=== PATIENT | female | born 1985 | race African-American/Black ===

== ENCOUNTER 2020-11-01 05:24 | Inpatient (IN) | payer BC, SELFPAY ==
--- NOTE | 2020-10-09 12:53 | PC.NURSE ---
VERIFIED WITH OR SCHEDULE AND PATIENT--C/S WITH TUBAL LIGATION ON 11/01/20 AT 0730 PATIENT GIVEN REQUISITION FOR LAB DRAW ON 10/31/20
[2020-10-31 12:09] LABS: Hematocrit 41.5 % (37.0-47.0); Hemoglobin 13.7 g/dL (12.0-15.0); Mean Corpuscular Volume 87.7 fl (80-100); Platelet Count Result 170 k/mm3 (150-375); Red Blood Count 4.73 M/mm3 (4.2-5.4); Red Cell Distribution Width 14.5 % (11.5-14.5); White Blood Count 7.1 K/mm3 (4.5-10.0)
--- NOTE | 2020-10-31 14:54 | P.HP_ITS ---
H&P: HPI History of Present Illness Date/Time: 10/31/20 14:54 35 yo A2 at 39 wks here for repeat csection and tubal ligation. She has completed childbearing and wants permanant control. Risks of failure with increased ectopic discussed. uncomplicated. labs: A+; RPR - ;HepBSAg -;Rubella immume; Hiv -; GBS -. Has been on Valtrex for hx HSV. Chief Complaint: scheduled csection and BTL Review of Systems Review of Systems: contractions rare; Good FM; No PIH sx PMFSH Past Medical History Medical History (Updated 10/31/20 @ 14:59 by Brittney Ryder MD) Advanced maternal age (AMA) in normal Level 2 us Fibroids HSV (herpes simplex virus) infection Surgical History Surgical History (Updated 10/31/20 @ 15:01 by Brittney Ryder MD) History of x2 History of elective x2 Family History Family History (Updated 10/09/20 @ 12:40 by Claudio Edwards RN) Other No pertinent family history Social History Social History Substance use: never Spiritual care concerns: No Meds Home Medications and Allergies Home Medications Medication Instructions Recorded Confirmed Type acetaminophen [Tylenol] 325 mg PO ONCE PRN 10/09/20 10/09/20 History aspirin [Aspirin Low Dose] 81 mg PO DAILY 10/09/20 10/09/20 History prenat.vits,rhonda,dni-vrit-arqey 1 tablet PO DAILY 10/09/20 10/09/20 History [ #2] Allergies Allergy/AdvReac Type Severity Reaction Status Date / Time No Known Allergies Allergy Verified 10/09/20 12:36 Exam Const: General: comfortable and no acute distress GI: GI Palp: Yes Other GI palpation findings present (gravid with FH 41 cm) Assessment and Plan Assessment and plan (1) 39 weeks gestation of : Code(s): Z3A.39 - 39 weeks gestation of Status: Acute Assessment and Plan: Plan to proceed with repeat LTCS and BTL (2) Encounter for sterilization: Code(s): Z30.2 - Encounter for sterilization Status: Acute (3) History of : Code(s): Z98.891 - History of uterine scar from previous surgery Status: Acute
[2020-11-01] VITALS (97 sets, daily range): BP systolic 67–134; BP diastolic 31–87; PULSE 47–152; RESP 16–51; TEMP 30.2–37; O2SAT 88–100; BMI 41.5
--- NOTE | ~2020-11-01 | US_ITS ---
EXAMINATION: US abdomen limited DATE: 11/01/2020 13:04 INDICATION: Abnormal vital signs status post section and bilateral tubal ligation TECHNIQUE: Multiple grayscale and Doppler ultrasound images of the abdomen were obtained. COMPARISON: None available FINDINGS: There is a small to moderate amount of free fluid in the upper abdomen and right lower quad rant. Enlarged uterus is noted. Foci of gas in the endometrial canal are consistent with e arlier section. IMPRESSION: 1. Small to moderate volume of fluid in the upper abdomen and right lower quadrant. Reviewed, dictated and finalized at location A. IMPRESSION: 1. Small to moderate volume of fluid in the upper abdomen and right lower quadr ant.
--- NOTE | ~2020-11-01 | CT_ITS ---
EXAMINATION: CTA chest PE abdomen pel DATE: 11/01/2020 23:48 INDICATION: Tachypnea. TECHNIQUE: Computed tomography angiography (CTA) of the chest was performed with 100 mL Omnipaque-350 intravenous contrast timed to evaluate the pulmonary arteries. Coronal maximum intensity projection 3D-reconstructions were created by the technologist. Computed tomography (CT) of the abdomen and pelv is was performed with intravenous contrast. Automated exposure control and iterative reconstruction t echnique were employed. The dose-length product was 2000.33 mGy-cm. COMPARISON: Ultrasound abdomen 11/01/2020 FINDINGS: CTA chest: There is mild dependent atelectasis in the lungs. No pleural effusion. The heart size is n ormal. There is a small pericardial effusion. There is no pulmonary embolus. CT abdomen and pelvis: The liver, gallbladder, spleen, pancreas, adrenal glands, and kidneys are norm al. There are no dilated loops of bowel. The appendix is normal. The uterus is enlarged, consistent w ith recent . The endometrial complex is thickened to 18 mm. There is a 19 mm calcification i n the uterus, consistent with a fibroid. There is a moderate volume of hemoperitoneum. There is gas i n the lower abdomen, consistent with recent surgery. Lower abdominal skin deyvi are noted. The bone s are unremarkable. IMPRESSION: 1. Moderate volume of hemoperitoneum. 2. Small pericardial effusion. 3. No pulmonary embolus. Sensitivity is severely decreased by motion artifact and suboptimal contrast timing. 4. Thickened endometrial complex, which may be hematoma. Retained products of conception cannot be ex cluded. Reviewed, dictated and finalized at location A. IMPRESSION: 1. Moderate volume of hemoperitoneum. 2. Small pericardial effusion. 3. No pulmonary embolus. Sensitivity is severely decreased by motion artifact a nd suboptimal contrast timing. 4. Thickened endometrial complex, which may be hematoma. Retained products of c onception cannot be excluded.
--- NOTE | ~2020-11-01 | XR_ITS ---
EXAMINATION: XR abdomen obstructive series DATE: 11/04/2020 06:18 INDICATION: Distended abdomen. Abnormal bowel sounds. TECHNIQUE: Frontal supine and upright views of the abdomen were obtained. COMPARISON: None. FINDINGS: Air-fluid level seen within multiple loops of mildly dilated small bowel in the mid and left abdomen. Gas and stool seen in the proximal colon. No pneumatosis or evident pneumoperitoneum however the sta nding projection excludes the diaphragm which limits sensitivity. IMPRESSION: 1. Multiple mildly dilated loops of small bowel which could represent either postoperative ileus or obstruction. 2. No evident free intraperitoneal gas. Sensitivity is limited by positioning of the standing radiogr aph which excludes the apex of the diaphragm. If there is clinical concern for perforation or free in traperitoneal gas would recommend repeat upright or decubitus imaging. Reviewed, dictated and finalized at location A. IMPRESSION: 1. Multiple mildly dilated loops of small bowel which could represent either p ostoperative ileus or obstruction. 2. No evident free intraperitoneal gas. Sensitivity is limited by positioning o f the standing radiograph which excludes the apex of the diaphragm. If there is clinical concern for perforation or free intraperitoneal gas would recommend r epeat upright or decubitus imaging.
[2020-11-01] MEDS: LACTATED RINGERS 1,000 ML 125 ML IV CONT ×2 (05:59→06:39)
--- NOTE | 2020-11-01 06:11 | LDADM ---
This patient, Rossi Calvin, was admitted to Labor/Delivery/Recovery 120 on 11/01/20 at 05:24. Plans for labor, pain management and were discussed with patient. Patient/family oriented to hospital policies and general routines including ID bracelet, bed and alarms, visiting hours, pain management, procedures, bathroom and other care routines, personal items, smoking policy, room service/diet and guest tray routines, security routines, and visiting hours. Patient/Family are encouraged to report perceived risks to care and to ask questions if they do not understand what they are told or what they should do. See OBIX for further documentation.
--- NOTE | 2020-11-01 07:08 | WPDANESEPPF ---
Anes - Initial Pre Proc Eval Procedure: Operation Date: 11/01/20 07:30 Proposed Procedures p Repeat Section with Bilateral Tubal Ligation - Brittney Ryder MD Date/Time: 11/01/20 07:08 Surgeon: Brittney Ryder MD Pre Op Diagnosis: C/S Patient Data Age: 35 Gender: F Height: 1.57 m Weight: 103 kg Last Vital Signs Temp 36.6 C 11/01/20 06:43 Pulse 66 11/01/20 06:43 Resp 20 11/01/20 06:43 BP 128/76 11/01/20 06:43 Allergies Allergy/AdvReac Type Severity Reaction Status Date / Time No Known Allergies Allergy Verified 10/09/20 12:36 Home Medications Medication Instructions Recorded Confirmed Type acetaminophen [Tylenol] 325 mg PO ONCE PRN 10/09/20 11/01/20 History aspirin [Aspirin Low Dose] 81 mg PO DAILY 10/09/20 11/01/20 History prenat.vits,rhonda,hrd-rdgj-oagrq 1 tablet PO DAILY 10/09/20 11/01/20 History [ #2] valacyclovir 500 mg PO DAILY 11/01/20 11/01/20 History Patient hx anesthesia problems: none Family hx anesthesia problems: none PMFSH Past Medical History Medical History Advanced maternal age (AMA) in normal Level 2 us Fibroids HSV (herpes simplex virus) infection Surgical History Surgical History History of x2 History of elective x2 Family History Family History Other No pertinent family history Social History Social History Smoking status: Never smoker Substance use: never Spiritual care concerns: No Anes - Eval Final PreProcedure Day of Procedure 11/01/20 07:08 Patient weight: morbidly obese Heart: regular rate and rhythm Lungs: clear to auscultation Airway: Mallampati scale class II Neurological: alert and oriented Last oral intake: >/= 8 hours ASA classification: III Emergent: no Anesthetic plan: proceed Anesthesia type and monitoring: regional spinal and standard monitoring Informed Consent: The patient's anesthetic plan and its attendant risks and benefits were discussed with the patient/family/POA. Questions were solicited and answers provided to the satisfaction of the patient/family/POA.
--- NOTE | 2020-11-01 07:13 | WPDHPUPDATE1 ---
History and Physical Update Update Date/Time: 11/01/20 07:13 History and Physical has been reviewed, including an updated exam of the patient. There are NO changes in the patient's condition. Risks, benefits, and alternatives have been discussed and questions answered. Patient agrees to proceed with procedure.
[2020-11-01] MEDS: ceFAZolin 2 GM/D5W 50 ML 2 GM/50 ML BAG IVPB (07:23)
--- NOTE | 2020-11-01 08:25 | P.OP_ITS ---
Procedure Note - Detailed Date of Procedure 11/01/20 Pre-op Diagnosis IUP 39 wks Prior csection x 2 requests sterilization fibroids Post-op Diagnosis same (plus double footling breech) Procedure Performed repeat LTCS and BTL Surgeon Brittney Ryder MD Anesthesia spinal Findings Female in the double footling breech presentation; copious amounts of clear fluid; 2 large fibroids at the fundus the right fundus is approximately 7cm the midline is approximately 5 to 6 cm they are subserosal intrauterine cavity has no palpable fibroids; infant weighs 7 lb 5oz with Apgars of 9 [id number] 9 5minutes; tight nuchal cord x2; normal-appearing tubes and ovaries Description of Procedure the patient was taken to the operating room placed under spinal anesthesia in the dorsal supine position with a leftward tilt. She was prepped and draped in usual sterile fashion. Pfannenstiel skin incision was made through the prior incision and carried down to the underlying layer of fascia which was nicked in the midline with the scalpel. Fascial incision is extended laterally using Gonsalez scissors. [facility] was used to tent the fascia which was then dissected off using sharp dissection due to dense adhesions. The rectus muscles are the peritoneum is entered bluntly and extended with blunt traction. The bladder blade is placed. The lower uterine segment was noted to be very thin the bladder flap was created using sharp dissection bladder blade is replaced. The membranes are ruptured and copious amounts of clear fluid were noted the was noted to be in the double footling breech presentation. Both feet are grasped and the infant was delivered to the scapula the infant was rotated in the right arm delivered spontaneously the was rotated and the left arm splinted and delivered the is extended on the abdomen and the head delivered spontaneously tight nuchal cord x2 was reduced. The cord was clamped and cut the infant handed to the waiting nursery nurse. The placenta is removed using manual traction. Due to the large fibroids the uterus is left inside tube. The Daniel O retractor was placed. Uterine edges were grasped with ring forceps. Uterine incision is closed using 0 Monocryl in a running locked fashi on. Same suture was used to imbricate and obtain hemostasis. The right tube is brought into the surgical field grasped with a Minerva and crossclamped using a zeppelin clamp. The tube is excised and the pedicle tied using 0 Vicryl. The identical procedure was performed on the opposite side. The incision is again inspected noted to be hemostatic the tubal sites were hemostatic all instruments are removed the fascia is closed using 0 Vicryl in a running fashion. Subcutaneous tissues were irrigated made hemostatic using Bovie cautery. Skin incision was closed using 4-0 Vicryl in a subcuticular fashion. Sponge, needle, and instrument counts are correct per the OR staff. Patient received Ancef prior to skin incision. Estimated Blood Loss 505 Drains Yes (mayer) Packing No Pathology yes ( bilateral tubal segment) Complications No immediate complications Condition stable Disposition floor
--- NOTE | 2020-11-01 08:30 | PM.OBDSVD ---
DS: Admitting Diagnosis Admitting Diagnosis intrauterine at 39 weeks previous section x2 request sterilization fibroids DS: Discharge Diagnosis Discharge Diagnosis (1) History of : Code(s): Z98.891 - History of uterine scar from previous surgery Status: Acute (2) Encounter for sterilization: Code(s): Z30.2 - Encounter for sterilization Status: Acute Assessment and Plan: s/p BTL (3) 39 weeks gestation of : Code(s): Z3A.39 - 39 weeks gestation of Status: Acute Assessment and Plan: resolved (4) Fibroids: Code(s): D21.9 - Benign neoplasm of connective and other soft tissue, unspecified Status: Inactive (5) Post-op bleeding: Status: Acute Assessment and Plan: return to OR 4 units PRBC and 1 unit FFP (6) Postoperative ileus: Code(s): K91.89 - Other postprocedural complications and disorders of digestive system; K56.7 - Ileus, unspecified Status: Acute Assessment and Plan: resolved in less than 24 hours tolerating regular diet (7) Postoperative tachycardia and tachypnea: Code(s): I97.89 - Other postprocedural complications and disorders of the circulatory system, not elsewhere classified; J95.89 - Other postprocedural complications and disorders of respiratory system, not elsewhere classified Status: Acute Assessment and Plan: resolved (8) delivery delivered: Code(s): O82 - Encounter for delivery without indication Status: Acute (9) Anemia: Code(s): D64.9 - Anemia, unspecified Status: Acute Assessment and Plan: tolerating plan iron BID x 8 wks OB - DS: Summary OB Procedures : Ultrasound OB Procedures Intrapartum: low cervical, transverse OB Procedures: : P.P. tubal ligation Peripartum Data Infant Delivery Method: Section Procedures: Procedures Operation Date: 11/01/20 07:30 <No data on this case meets the specified criteria> complications: other (post op bleeding with return to OR) Status at Discharge Functional status at discharge: independent ambulation Overall status at discharge: patient is progressing back to baseline Time Spent with Patient Time attestation: Total time spent providing and/or coordinating discharge services: Discharge Plan Discharge Attending physician on discharge: Brittney Ryder Consulting providers: Rose Colunga Discharging Clinician: Brittney Ryder Anticipated Discharge Date/Time: 11/04/20 08:31 Patient Disposition: Home, Self-Care Activity: may shower, may drive after 2 weeks and pelvic rest Diet: regular Wound Care Instructions: incision open to air Patient Instructions: Antibiotic Form Stand Alone Forms: General Discharge Information Follow-up/Referrals: Brittney Ryder MD [Physician] - 1 Week (and 6 wk) Discharge Medications: New hydrocodone-acetaminophen 5-325 mg Tablet 1 tablet PO Q3H PRN (Reason: Moderate Pain (4-6)) Qty: 10 RF: 0 Continued acetaminophen [Tylenol] 325 mg Tablet 325 mg PO ONCE PRN (Reason: Headache) RF: 0 #2 Tablet 1 tablet PO DAILY RF: 0 Discontinued aspirin [Aspirin Low Dose] 81 mg Tablet,Delayed Release (Dr/Ec) 81 mg PO DAILY RF: 0 valacyclovir 500 mg tablet 500 mg PO DAILY RF: 0 Date of admission: 11/01/20 05:24 Primary Care Provider: Darwin Garcia Admitting Provider: Brittney Ryder Attending physician on admission: Brittney Ryder Condition: Stable
[2020-11-01] MEDS: OXYTOCIN 30 UNITS/NS 500 ML 30 UNITS/500 ML BAG 125 UNITS IV CONT (08:38)
[2020-11-01] MEDS: LACTATED RINGERS 1,000 ML 999 ML IV CONT (09:10)
[2020-11-01] MEDS: ePHEDrine sulfate INJ 50 MG/ML AMPUL IV PUSH (09:40)
[2020-11-01 09:47] LABS: Rapid Plasma Reagin Non-Reactive (NonReactive)
--- NOTE | 2020-11-01 10:51 | SUR.PHASEI ---
Report called to Tracey RILEY. Orders rc'vd to draw HH before moving to pp.
[2020-11-01 11:14] LABS: Hematocrit 31.1 % (37.0-47.0); Hemoglobin 9.9 g/dL (12.0-15.0)
--- NOTE | 2020-11-01 12:15 | PC.NURSE ---
Khurram hugger blanket placed on patient, temperature
--- NOTE | 2020-11-01 12:18 | PC.NURSE ---
Patient sleeping and not feeling well per primary RN. Primary RN states that parents decided to feed bottle for this feeding and will attempt once mom is feeling more up to it.
--- NOTE | 2020-11-01 12:19 | PC.NURSE ---
Dr. Ryder notified of Vital signs including low temp, and blood pressure. Notified also of H&H that was drawn in recovery, orders received to do a bedside ultrasound to look for free standing fluid. Ultrasound will be ordered
--- NOTE | 2020-11-01 13:00 | PC.NURSE ---
Dr. Ryder notified of ultrasound, orders received to draw an H&H, PTT and fibrinogen at 1700 and call the results to her. Hold the Toradol for now and give Morphine 2 mg every 2 hours prn as needed for pain.
[2020-11-01] MEDS: DEXTROSE 5%/0.45% SOD CHL 1,000 ML 125 ML IV CONT ×2 (13:43→21:23)
[2020-11-01] MEDS: MORPHINE SULFATE (*CRX) 2 MG/ML INJ IV PUSH (14:13)
[2020-11-01 17:27] LABS: Hematocrit 27.2 % (37.0-47.0); Hemoglobin 8.8 g/dL (12.0-15.0)
--- NOTE | 2020-11-01 18:00 | PC.NURSE ---
Dr. Ryder notified of vitals and H&H results, she is going to come in to see the patient and discuss the plan of care which is going to be possibly taking the patient back to the OR for an exploratory lap, Dr. Ryder transferred to the House Supervisior.
--- NOTE | 2020-11-01 18:20 | PM.OBPNVD ---
OB - PN: Subj Subjective Date/time seen: 11/01/20 18:20 Interval history: feels very tired pain under control OB - PN: Obj Data Labs CBC & Chem 7: 11/01/20 17:17 Labs: Laboratory Results - last 24 hr 11/01/20 11/01/20 11:03 17:17 Hgb 9.9 L D 8.8 L Hct 31.1 L 27.2 L Imaging Radiologist's impression: Impressions Abdomen Ultrasound 11/01/20 13:11 IMPRESSION: 1. Small to moderate volume of fluid in the upper abdomen and right lower quadrant. OB - PN A/P Plan day: 0 Comments: Initial call from RN with low temp at 85.9, low pulse, and low BP. Was told anesthesia gave iv bolus and ephedrine. BP stable throughout day but pulse continues to rise. Hb decreased to 9.9 and now 8.8. U/s with small to moderate fluid. Recommend to patient and sig. other to return to OR for suspected internal bleeding. Reviewed procedure and they agree to proceed with exploratory laparotomy. Time Spent With Patient Time: Total time spent is greater than 50% in coordination of care (as documented) at patient's floor/unit and/or counseling patient: Exam Const: General: no acute distress and lethargic Resp: Effort & Inspection: normal respiratory effort GI: GI Palp: Yes abdominal tenderness and Yes Other GI palpation findings present Percussion: Yes tympanic to percussion
[2020-11-01 18:23] LABS: Partial Thromboplastin Time 25.2 SECONDS (22.3-36.8)
[2020-11-01 18:29] LABS: Fibrinogen 221 mg/dl (215-510)
--- NOTE | 2020-11-01 18:35 | PC.NURSE ---
To OR per hospital bed.
--- NOTE | 2020-11-01 19:16 | WPDANESEFPP ---
Anes - Eval Final PreProcedure Day of Procedure 11/01/20 19:16 Patient weight: morbidly obese Heart: regular rate and rhythm Lungs: clear to auscultation and normal air movement Airway: Mallampati scale class II Neurological: alert and oriented Last oral intake: >/= 8 hours ASA classification: III Emergent: yes Anesthetic plan: proceed Anesthesia type and monitoring: general ETT Informed Consent: The patient's anesthetic plan and its attendant risks and benefits were discussed with the patient/family/POA. Questions were solicited and answers provided to the satisfaction of the patient/family/POA.
[2020-11-01] MEDS: LACTATED RINGERS 1,000 ML 30 ML IV CONT ×2 (20:17)
--- NOTE | 2020-11-01 20:20 | W.PM.PROC2 ---
Procedure Note - Detailed Date of Procedure 11/01/20 Pre-op Diagnosis post op bleeding status post section and tubal ligation Post-op Diagnosis same Procedure Performed Exploratory laparotomy with evacuation of clot Surgeon Brittney Ryder MD Anesthesia general Findings Upon opening the abdomen, a large amount of blood clot was noted in the gutters. In addition there was a large hematoma in the left broad ligament tissues. Description of Procedure The patient was taken to the operating room and placed under general anesthesia in the dorsal supine position. She was prepped and draped in the usual sterile fashion. The glue was incised in the corner and peeled off the incision. The sutures cut and the incision opened. No bleeding is noted in the subcutaneous tissues. The fascial sutures are cut and the incision opened. No active blood is noted. I manually removed approximately 800cc of blood clot from the gutters and cul-de-sac with an additional 500cc suctioned with the pool suction. The Daniel O retractor was then placed. The tubal sites were inspected and noted to be hemostatic additional sutures were placed on each pedicle for additional reinforcement with 0 Vicryl. The uterine incision is noted to be intact and hemostatic both angles are visualized as well as the entire incision. There is a large hematoma noted within the left broad ligament. The peritoneum was opened and extended approximately 8cm. Additional blood clot was removed from this area. No active bleeding was noted 2 lap sponges were placed within this space and left in place for 10minutes. Sponges were removed with minimal blood noted on the sponges and no active bleeding noted on any of the tissues incorporating this space. Two pieces of Surgicel measuring 2x14 were placed within the space and again the space was observed for further bleeding there was no active bleeding noted. The bladder flap was noted to be hemostatic with no bleeding noted. Decision was made to close. All instruments were removed. Fascia was reclosed using 0 Vicryl in a running fashion. Subcutaneous tissues are irrigated and noted to be hemostatic. Skin was closed with deyvi. Sterile bandages applied. Sponge, needle, and instrument counts are correct per the OR staff. Patient did receive 2g of Ancef prior to starting the procedure. Estimated Blood Loss 1,275 Drains Yes (Paul) Packing No Pathology none sent Complications No immediate complications Condition stable Disposition PACU
[2020-11-01] MEDS: ONDANSETRON INJ 4 MG/2 ML VIAL IV PUSH (20:44)
[2020-11-01] MEDS: fentaNYL CITRATE INJ (*CRX) 100 MCG/2 ML VIAL 25 MCG IV PUSH ×2 (20:44→20:48)
--- NOTE | 2020-11-01 21:05 | PC.NURSE ---
Return to room 282 per hospital bed from OR.
--- NOTE | 2020-11-01 22:41 | PC.NURSE ---
Diaphoretic. Blood sugar 193.
--- NOTE | 2020-11-01 22:45 | PC.NURSE ---
Dr. Ryder at bedside.
--- NOTE | 2020-11-01 23:00 | PC.NURSE ---
Lab at bedside drawing blood.
--- NOTE | 2020-11-01 23:10 | PC.NURSE ---
TO CT per hospital bed.
--- NOTE | 2020-11-01 23:13 | PM.OBPNVD ---
OB - PN: Subj Subjective Date/time seen: 11/01/20 23:13 Interval history: short of breath Patient comments: incisional pain OB - PN: Obj Data Labs CBC & Chem 7: 11/01/20 17:17 Labs: Laboratory Results - last 24 hr 10/31/20 10/31/20 10/31/20 12:05 12:05 12:05 WBC 7.1 RBC 4.73 Hgb 13.7 Hct 41.5 MCV 87.7 MCH 29.0 MCHC 33.0 RDW 14.5 Plt Count 170 MPV 11.0 H APTT Fibrinogen RPR Non-reactive Blood Type A Positive Antibody Screen Negative Crossmatch See Detail 11/01/20 11/01/20 11/01/20 11:03 17:17 18:00 WBC RBC Hgb 9.9 L D 8.8 L Hct 31.1 L 27.2 L MCV MCH MCHC RDW Plt Count MPV APTT 25.2 Fibrinogen 221 RPR Blood Type Antibody Screen Crossmatch Imaging Radiologist's impression: Impressions Abdomen Ultrasound 11/01/20 13:11 IMPRESSION: 1. Small to moderate volume of fluid in the upper abdomen and right lower quadrant. OB - PN A/P Assessment and Plan (1) Postoperative tachycardia and tachypnea: Code(s): I97.89 - Other postprocedural complications and disorders of the circulatory system, not elsewhere classified; J95.89 - Other postprocedural complications and disorders of respiratory system, not elsewhere classified Status: Acute Assessment and Plan: Called by RN with increased pulse to 110's and BP' 90/50-60 Ordered 2 units PRBC. I was then called shortly after and informed a rapid response was called for patient. In route, suspected rebleeding as this was prior presentation earlier today so called anesthesia and informed of possible need to return to OR. However, on my arrival P 140's (high of 152), RR 44, BP 90's/60 with low before my arrival of 83/34. O[address]. Blood just being hung. With change in VS considering other pathology and ordered spiral chest CT to r/o PE and evaluate lungs. CBC and DIC panel ordered. Will move patient to ICU post CT. Dr. Barclay informed of patient status and he accepts the transfer to the ICU. Will proceed with transfusions as previously ordered. Care and plan outlined with the who was present for the rapid response and during evaluation. (2) Post-op bleeding: Status: Acute Assessment and Plan: CBC and DIC panel ordered. No evidence of active bleeding or DIC. (3) delivery delivered: Code(s): O82 - Encounter for delivery without indication Status: Acute Plan day: 0 Time Spent With Patient Time: Total time spent is greater than 50% in coordination of care (as documented) at patient's floor/unit and/or counseling patient: Exam Const: General: alert, acute distress and ill appearing Resp: Effort & Inspection: tachypneic Auscultation: clear to auscultation bilaterally Cardio: Rate: tachycardic GI: Inspection: other (dressing dry) GI Palp: Yes Other GI palpation findings present (no blood through staple line with palpation ) Percussion: Yes tympanic to percussion (same as prior to exp. lap.) : Bimanual exam- vagina & uterus: other (minimal bleeding vaginally) Urinary Catheter: Urinary Catheter: patent and draining and urine clear
[2020-11-01 23:15] LABS: Glucose Point of Care 193 mg/dl (65-105)
[2020-11-02] VITALS (33 sets, daily range): BP systolic 104–159; BP diastolic 70–100; PULSE 116–153; RESP 23–41; TEMP 36.5–38.2; O2SAT 93–100
--- NOTE | 2020-11-02 00:06 | ECG_ITS ---
Measurements Intervals [place] Rate: 125 P: 38 [place]: 131 QRS: 18 QRSD: 80 T: 16 QT: 271 QTc: 391 Interpretive Statements SINUS TACHYCARDIA VOLTAGE CRITERIA FOR LVH BORDERLINE T WAVE ABNORMALITY- INFERIOR LEADS ABNORMAL ECG Electronically Signed On 11-02-2020 8:32:00 CDT by Ziggy Sandoval D.O.
[2020-11-02 00:07] LABS: Basophils Percent Auto 0.2 % (0.2-1.2); Eosinophils Absolute Auto 0.1 K/mm3 (0-0.3); Eosinophils Percent Auto 0.5 % (0-4.4); Immature Granulocyte Absolute 0.19 K/mm3 (0.00-0.031); Lymphocytes Absolute Auto 4.16 K/mm3 (0.9-3.2); Mean Corpuscular HGB Conc 30.6 g/dl (32-36); Mean Corpuscular Hemoglobin 29.6 pg (26-34); Mean Corpuscular Volume 96.6 fl (80-100); Mean Platelet Volume 11.5 fl (7.4-10.4); Monocytes Absolute Auto 0.7 K/mm3 (0.1-0.6); Monocytes Percent Auto 3.6 % (2.6-8.5); Neutrophils Absolute Auto 13.8 K/mm3 (1.3-6.7); Neutrophils Percent Auto 72.7 % (45.5-73.1); Nucleated Red Blood Cells Perc 0.2 % (0.0-0.2); Platelet Count Result 194 k/mm3 (150-375); Red Blood Count 2.03 M/mm3 (4.2-5.4); Red Cell Distribution Width 14.7 % (11.5-14.5); White Blood Count 18.9 K/mm3 (4.5-10.0)
[2020-11-02 00:09] LABS: Hematocrit 19.6 % (37.0-47.0)
[2020-11-02 00:12] LABS: Albumin Level 2.1 g/dL (3.5-5.1); Alkaline Phosphatase 70 U/L (38-126); Anion Gap 13 mmol/L (8-16); Aspartate Amino Transferase 34 U/L (14-36); Bilirubin,Total 0.2 mg/dL (0.2-1.3); Blood Urea Nitrogen 12 mg/dL (7-17); Calcium 7.3 mg/dL (8.4-10.2); Carbon Dioxide 12 mmol/L (22-30); Chloride 101 mmol/L (98-107); Estimated CRCL calculation 85 ml/min; Estimated Glomerular Filt Rate > 60; Glucose 220 mg/dL (65-110); Potassium 4.1 mmol/L (3.4-5.0); Sodium 126 mmol/L (137-145)
[2020-11-02 00:19] LABS: Prothrombin Time 13.5 Seconds (11.1-14.7)
[2020-11-02 00:20] LABS: Alanine Aminotransferase 19 U/L (4-35); Partial Thromboplastin Time 25.9 SECONDS (22.3-36.8)
[2020-11-02 00:26] LABS: Fibrinogen 213 mg/dl (215-510)
[2020-11-02 00:30] LABS: D Dimer 3.88 ug/mL (<0.48)
--- NOTE | 2020-11-02 00:35 | PM.OBPNVD ---
OB - PN: Subj Subjective Date/time seen: 11/02/20 00:35 Interval history: resting more comfortably OB - PN: Obj Data Labs CBC & Chem 7: 11/01/20 23:01 11/01/20 23:01 Labs: Laboratory Results - last 24 hr 10/31/20 10/31/20 10/31/20 12:05 12:05 12:05 WBC 7.1 RBC 4.73 Hgb 13.7 Hct 41.5 MCV 87.7 MCH 29.0 MCHC 33.0 RDW 14.5 Plt Count 170 MPV 11.0 H Immature Gran % (Auto) Neut % (Auto) Lymph % (Auto) [place] % (Auto) Eos % (Auto) Baso % (Auto) Lymph # (Auto) [place] # (Auto) Eos # (Auto) Baso # (Auto) Abs Immat Gran (auto) Absolute Neuts (auto) Absolute Nucleated RBC Nucleated RBC % PT INR APTT Fibrinogen D-Dimer Sodium Potassium Chloride Carbon Dioxide Anion Gap BUN Creatinine Estim Creat Clear Calc Estimated GFR Glucose POC Capillary Glucose Calcium Total Bilirubin AST ALT Alkaline Phosphatase Total Protein Albumin RPR Non-reactive Blood Type A Positive Antibody Screen Negative Crossmatch See Detail 11/01/20 11/01/20 11/01/20 11:03 17:17 18:00 WBC RBC Hgb 9.9 L D 8.8 L Hct 31.1 L 27.2 L MCV MCH MCHC RDW Plt Count MPV Immature Gran % (Auto) Neut % (Auto) Lymph % (Auto) [place] % (Auto) Eos % (Auto) Baso % (Auto) Lymph # (Auto) [place] # (Auto) Eos # (Auto) Baso # (Auto) Abs Immat Gran (auto) Absolute Neuts (auto) Absolute Nucleated RBC Nucleated RBC % PT INR APTT 25.2 Fibrinogen 221 D-Dimer Sodium Potassium Chloride Carbon Dioxide Anion Gap BUN Creatinine Estim Creat Clear Calc Estimated GFR Glucose POC Capillary Glucose Calcium Total Bilirubin AST ALT Alkaline Phosphatase Total Protein Albumin RPR Blood Type Antibody Screen Crossmatch 11/01/20 11/01/20 11/01/20 22:41 23:01 23:01 WBC 18.9 H RBC 2.03 L Hgb 6.0 L* Hct 19.6 L* MCV 96.6 D MCH 29.6 MCHC 30.6 L RDW 14.7 H Plt Count 194 MPV 11.5 H Immature Gran % (Auto) 1.0 H Neut % (Auto) 72.7 Lymph % (Auto) 22.0 [place] % (Auto) 3.6 Eos % (Auto) 0.5 Baso % (Auto) 0.2 Lymph # (Auto) 4.16 H [place] # (Auto) 0.7 H Eos # (Auto) 0.1 Baso # (Auto) 0.0 Abs Immat Gran (auto) 0.19 H Absolute Neuts (auto) 13.8 H Absolute Nucleated RBC 0.0 Nucleated RBC % 0.2 PT INR APTT Fibrinogen D-Dimer Sodium 126 L Potassium 4.1 Chloride 101 Carbon Dioxide 12 L Anion Gap 13 BUN 12 Creatinine 0.90 Estim Creat Clear Calc 85 Estimated GFR > 60 Glucose 220 H POC Capillary Glucose 193 H Calcium 7.3 L Total Bilirubin 0.2 AST 34 ALT 19 Alkaline Phosphatase 70 Total Protein 4.0 L Albumin 2.1 L RPR Blood Type Antibody Screen Crossmatch 11/01/20 11/01/20 11/01/20 23:01 23:01 23:01 WBC RBC Hgb Hct MCV MCH MCHC RDW Plt Count MPV Immature Gran % (Auto) Neut % (Auto) Lymph % (Auto) [place] % (Auto) Eos % (Auto) Baso % (Auto) Lymph # (Auto) [place] # (Auto) Eos # (Auto) Baso # (Auto) Abs Immat Gran (auto) Absolute Neuts (auto) Absolute Nucleated RBC Nucleated RBC % PT 13.5 INR 1.0 APTT 25.9 Fibrinogen 213 L Cancelled D-Dimer 3.88 H Cancelled Sodium Potassium Chloride Carbon Dioxide Anion Gap BUN Creatinine Estim Creat Clear Calc Estimated GFR Glucose POC Capillary Glucose Calcium Total Bilirubin AST ALT Alkaline Phosphatase Total Protein Albumin RPR Blood Type Antibody Screen Crossmatch Imaging Radiologist's impression: Impressions Abdomen Ultrasound 11/01/20 13:
--- NOTE | 2020-11-02 01:10 | PC.NURSE ---
This patient arrived from [place] at 0000. Patient was brought over by bed. All belongings left with patients spouse in the OB department. Patient oriented to room policies and procedures. Patient in ICU room 3.
[2020-11-02] MEDS: SODIUM CHLORIDE 0.9% IV 250 ML 30 ML IV CONT ×4 (01:32→18:45)
[2020-11-02] MEDS: HYDROcodone/acetaminophen (*CRX) 10-325 MG TABLET 1 TAB PO ×5 (01:55→20:44)
[2020-11-02] MEDS: ZOLPIDEM TARTRATE (*CRX) 5 MG TABLET PO (04:28)
[2020-11-02] MEDS: DEXTROSE 5%/0.45% SOD CHL 1,000 ML 125 ML IV CONT (04:33)
[2020-11-02 04:37] LABS: Basophils Percent Auto 0.1 % (0.2-1.2); Hemoglobin 9.5 g/dL (12.0-15.0); Immature Platelet Fraction Pct 6.5 % (0.9-11.2); Lymphocytes Absolute Auto 2.63 K/mm3 (0.9-3.2); Lymphocytes Percent Auto 12.7 % (18.3-44.2); Mean Corpuscular HGB Conc 32.8 g/dl (32-36); Mean Corpuscular Volume 91.5 fl (80-100); Mean Platelet Volume 10.6 fl (7.4-10.4); Monocytes Absolute Auto 1.3 K/mm3 (0.1-0.6); Monocytes Percent Auto 6.3 % (2.6-8.5); Neutrophils Absolute Auto 16.5 K/mm3 (1.3-6.7); Neutrophils Percent Auto 79.9 % (45.5-73.1); Nucleated Red Blood Cells Perc 0.2 % (0.0-0.2); Platelet Count Result 153 k/mm3 (150-375); Red Blood Count 3.17 M/mm3 (4.2-5.4); Red Cell Distribution Width 13.5 % (11.5-14.5); White Blood Count 20.7 K/mm3 (4.5-10.0)
[2020-11-02 04:46] LABS: Anion Gap 9 mmol/L (8-16); Blood Urea Nitrogen 12 mg/dL (7-17); Calcium 7.4 mg/dL (8.4-10.2); Carbon Dioxide 16 mmol/L (22-30); Chloride 103 mmol/L (98-107); Estimated CRCL calculation 108 ml/min; Estimated Glomerular Filt Rate > 60; Glucose 146 mg/dL (65-110); Potassium 4.7 mmol/L (3.4-5.0); Sodium 128 mmol/L (137-145)
--- NOTE | 2020-11-02 05:08 | ECG_ITS ---
Measurements Intervals [place] Rate: 127 P: 45 [place]: 126 QRS: 30 QRSD: 74 T: 31 QT: 276 QTc: 402 Interpretive Statements SINUS TACHYCARDIA ABNORMAL ECG Electronically Signed On 11-03-2020 20:31:55 CDT by Ziggy Sandoval D.O.
[2020-11-02] MEDS: SODIUM CHLORIDE 0.9% IV 1,000 ML 100 ML IV CONT (06:38)
[2020-11-02] MEDS: fentaNYL CITRATE INJ (*CRX) 100 MCG/2 ML VIAL 25 MCG IV PUSH (07:42)
--- NOTE | 2020-11-02 08:06 | ECHO_ITS ---
Patient Info Name: Rossi Calvin Age: 35 years : 1985 Gender: Female Ht: 62 in Wt: 228 lbs BSA: 2.18 m2 HR: 137 bpm BP: 143 / 79 mmHg Heart Rhythm: Sinus Rhythm, Tachycardia Technical Quality: Fair Exam Date: 11/02/2020 12:40 PM Exam Location: [facility] Card Pulmonary Patient Status: Inpatient Admit Date: 11/01/2020 Staff Ordering Physician: Josue Barclay MD [employer] E[employer]ctor: Mariana Carrion RDCS Attending Provider: Brittney Ryder MD Referring Physician: Ning GARCIA; Exam Type: CA echo doppler color flow Study Info Complete two-dimensional, color flow and Doppler transthoracic echocardiogram is performed. Summary 1. Complete two-dimensional, color flow and Doppler transthoracic echocardiogram is performed. 2. Left ventricular chamber size, systolic function and diastolic function are normal with no regional wall motion abnormalities with an estimated ejection fraction of >70%. Mild LVH. 3. No significant valve disease. 4. No pericardial effusion. 5. Sinus tachycardia. Left Ventricle Left ventricular chamber dimension is normal. Left ventricular systolic function is normal, estimated at >70%. There is mildly increased left ventricular wall thickness. Left ventricular septal wall motion is normal. The left ventricular diastolic function is normal. Left ventricular chamber size, systolic function and diastolic function are normal with no regional wall motion abnormalities with an estimated ejection fraction of >70%. Mild LVH. Right Ventricle Right ventricular chamber dimension is normal. Right ventricular systolic function is normal. Left Atria Left atrial chamber dimension is normal. Right Atria Right atrial chamber dimension is normal. Aortic Valve The aortic valve is trileaflet. There is no aortic valve sclerosis. There is no aortic valve stenosis. There is no aortic valve regurgitation. Pulmonic Valve The pulmonic valve is normal. There is no pulmonic valve stenosis. There is no pulmonic regurgitation. Mitral Valve The mitral valve has normal leaflets. There is no mitral valve stenosis. There is no mitral valve regurgitation. Tricuspid Valve The tricuspid valve leaflets are normal. There is no significant tricuspid valve stenosis. There is trace tricuspid valve regurgitation. No pulmonary hypertension, estimated pulmonary arterial systolic pressure is Empty. Pericardium/Pleural The pericardium appears normal. There is no pericardial effusion. Inferior Vena Cava Normal inferior vena cava with >50% collapse upon inspiration consistent with Empty right atrial pressure, Empty. Aorta The aortic root size at the sinus of Valsalva is normal. The prox ascending aorta size is normal. Left Ventricular Outflow Tract Name Value Normal LVOT 2D LVOT Diameter 1.9 cm LVOT Doppler LVOT Peak Gradient 6 mmHg LVOT Mean Gradient 4 mmHg LVOT VTI 21 cm LVOT VTI/AV VTI Ratio 1.0 LVOT Stroke Volume 60 ml
[2020-11-02] MEDS: HYDROmorphone HCL INJ (*CRX) 1 MG/ML SYR IV PUSH (08:53)
--- NOTE | 2020-11-02 09:38 | WPDCNINT ---
Assessment and Plan Assessment and plan (1) Postoperative tachycardia and tachypnea: Code(s): I97.89 - Other postprocedural complications and disorders of the circulatory system, not elsewhere classified; J95.89 - Other postprocedural complications and disorders of respiratory system, not elsewhere classified Status: Acute Assessment and Plan: Tachycardia could be related to anemia, postoperative bleeding, uncontrolled pain, infection, anxiety, PE, and aortic fluid embolism cardiomyopathy -CTA chest that showed a PE -pain is being controlled with pain medications, patient has received quite a bit of pain medications. -patient has been volume resuscitated -will obtain cultures as patient is febrile with a T-max of 100.5?. -status post cefazolin perioperatively -will control pain (2) Post-op bleeding: Status: Acute Assessment and Plan: Patient status post on 11/01/2020: Patient had postoperative bleeding with hemoglobin dropping to 6.0 status post ex lap and evacuation of clot according to the notes : Clot in C2 was noted in the left lower quadrant and the broad ligament. Due to the large size of the fibroids, OBGYN was unable to deliver the uterus to the incision and evacuated the upper blood with pool suction by feel and not by visualization so they could be blood still in those areas. -patient may need to go back to the OR, decision to be made by the OBGYN. (3) Anemia: Code(s): D64.9 - Anemia, unspecified Status: Acute Assessment and Plan: Anemia likely post hemorrhagic status post -patient has been transfused 2 units of packed RBCs, hemoglobin was 6.0 prior to transfusion and 9.5 post transfusion. -continue to monitor H&H q.6 hours -will transfuse PRBC p.r.n. (4) delivery delivered: Code(s): O82 - Encounter for delivery without indication Status: Acute Assessment and Plan: Patient 11/01/2020: Patient had a LTCS and BTL (5) Hyponatremia: Code(s): E87.1 - Hypo-osmolality and hyponatremia Status: Acute Assessment and Plan: Patient was on D5 0.45% saline, which could have caused hyponatremia -IV fluids switched to will saline, will repeat sodium level in a.m. (6) Hypocalcemia: Code(s): E83.51 - Hypocalcemia Status: Acute Assessment and Plan: Patient's albumin is 2.1, corrected calcium is within normal limits (7) DVT prophylaxis: Code(s): Z29.9 - Encounter for prophylactic measures, unspecified Status: Acute Assessment and Plan: SCDs, no chemoprophylaxis secondary to acute bleed and anemia Additional Plan Discussed with patient at length and updated with her condition and plan of care. I answered all questions. She has been requesting for more pain medications which were ordered. Code status: Full code Critical care time spent: 49 minutes This dictation may have been done utilizing a voice recognition system. Attempts have been made to correct errors. However, there may be uncorrected grammatical, spelling, and recognition errors present. Due to a high probability of clinically significant, life threatening deterioration, the patient required my highest level of preparedness to intervene emergently and I personally spent this critical care time directly and personally managing the patient. This critical care time included obtaining a history; examining the patient; pulse oximetry; ordering and review of studies; arranging urgent treatment with development of a management plan; evaluation of patient's response to treatment; frequent reassessment; and discussions with other providers. It was exclusive of separately billable procedures and treating other patients and teaching time. Please see Assessment and Plan section and the rest of the note for further information on patient assessment and treatment Rn Coronary Care Unit Consult Note Consult date: 11/02/20 Time Seen: 07:02 Pat
--- NOTE | 2020-11-02 10:13 | PM.CNCAR ---
Assessment and Plan Assessment and plan (1) Postoperative tachycardia and tachypnea: Code(s): I97.89 - Other postprocedural complications and disorders of the circulatory system, not elsewhere classified; J95.89 - Other postprocedural complications and disorders of respiratory system, not elsewhere classified Status: Acute Assessment and Plan: Post-op tachycardia Anemia mostly corrected, though we should recheck H&H q6HR as I suspect it will decline Has been adequately resuscitated w/ IV fluids. PE ruled out Echo to evaluate for cardiomyopathy and recheck pericardial effusion Check TSH Will follow and assist in any way I can. History of Present Illness History of Present Illness Consult date/time: 11/02/20 10:13 Requesting physician: Josue Barclay MD Reason For Visit: C/S Narrative: Date of service 11/02/2020 Rossi Calvin a 35-year-old female was asked to see at the request of Dr. Ryedr for my advice and opinion regarding her tachycardia in consultation. The patient presented on October 31 for a planned which occurred on November 01. She had bleeding post and hemoperitoneum, with a drop in her hematocrit down to 6. Subsequently she has been given 2 units of packed cells, and her hematocrit has increased to 29. She has a low-grade fever. She denies any chest pain or shortness of breath but does have some abdominal pain. No history of any heart disease, tachycardia. She has had some DREW with her pregnancies. Review of Systems Constitutional: Constitutional: Reports fatigue and Reports weakness Eyes: Eyes: Reports no additional eye complaints ENT: Denies epistaxis Cardiovascular: Cardiovascular: Denies chest pain, Denies pedal edema, Denies leg edema, Denies lightheadedness and Reports palpitations Respiratory: Respiratory: Denies cough and Reports dyspnea on exertion Gastrointestinal: Gastrointestinal: Reports abdominal pain Genitourinary: Genitourinary: Denies hematuria Musculoskeletal: Musculoskeletal: Denies back pain and Denies neck pain Integumentary/Breasts: Skin/Breast: Denies rash Neurologic: Denies headache(s) Psychiatric: Psychiatric: Reports no additional psychiatric complaints PMFSH Past Medical History Medical History Advanced maternal age (AMA) in normal Level 2 us Fibroids HSV (herpes simplex virus) infection Surgical History Surgical History History of x2 History of elective x2 Family History Family History (Updated 11/02/20 @ 10:37 by Rose Colunga MD) Other No family history of cardiac disease No pertinent family history Social History Social History Smoking status: Never smoker Substance use: never Spiritual care concerns: No Meds Home Medications and Allergies Home Medications Medication Instructions Recorded Confirmed Type acetaminophen [Tylenol] 325 mg PO ONCE PRN 10/09/20 11/01/20 History prenat.vits,rhonda,epo-wtzq-cilch 1 tablet PO DAILY 10/09/20 11/01/20 History hydrocodone-acetaminophen 1 tablet PO Q3H PRN #10 tablet 11/06/20 Rx Allergies Allergy/AdvReac Type Severity Reaction Status Date / Time No Known Allergies Allergy Verified 10/09/20 12:36 Vital Signs Vital Signs - 24 hr 11/01/20 10:14 11/01/20 10:15 11/01/20 10:16 Temperature Pulse Rate 105 H 124 H Respiratory Rate 18 Blood Pressure 94/64 L 94/64 L Pulse Oximetry 100 100 11/01/20 10:19 11/01/20 10:21 11/01/20 10:24 Temperature Pulse Rate 111 H Respiratory Rate Blood Pressure 102/62 Pulse Oximetry 100 100 11/01/20 10:26 11/01/20 10:29 11/01/20 10:30 Temperature Pulse Rate 105 H 122 H Respiratory Rate 20 Blood Pressure 97/57 L 108/37 L Pulse Oximetry 100 99 11/01/20
--- NOTE | 2020-11-02 10:19 | WPDANLDNPN2 ---
Anes-Prog Note L&D-Neuraxial Date/Time: 11/02/20 10:19 Neuraxial medications: intrathecal PF morphine Opiod-related complaints: none Patient feedback: Patient satisfied with post-operative pain management.
--- NOTE | 2020-11-02 10:19 | WPDANESPN ---
Anes - Prog Note Post-Op Date/Time: 11/02/20 10:19 Cardiovascular status: other Respiratory status: other Airway patency: baseline Mental status: baseline Post-Op hydration status: other Vital Signs: Last Vital Signs Temp 38.0 C H 11/02/20 08:00 Pulse 118 H 11/02/20 08:00 Resp 25 H 11/02/20 08:00 BP 126/74 11/02/20 08:00 Pulse Ox 99 11/02/20 08:00 Pain Score (VAS): 4 I/O: Intake & Output 11/01/20 11/02/20 11/02/20 23:59 07:59 15:59 Intake Total 2350 2246 Output Total 200 450 Balance 2150 1796 Laboratory Tests 11/02/20 04:26 11/02/20 04:26 10/31/20 10/31/20 10/31/20 12:05 12:05 12:05 WBC 7.1 RBC 4.73 Hgb 13.7 Hct 41.5 MCV 87.7 MCH 29.0 MCHC 33.0 RDW 14.5 Plt Count 170 MPV 11.0 H Immature Gran % (Auto) Neut % (Auto) Lymph % (Auto) [place] % (Auto) Eos % (Auto) Baso % (Auto) Lymph # (Auto) [place] # (Auto) Eos # (Auto) Baso # (Auto) Abs Immat Gran (auto) Absolute Neuts (auto) Absolute Nucleated RBC Nucleated RBC % % Immature Plt Fraction PT INR APTT Fibrinogen D-Dimer Sodium Potassium Chloride Carbon Dioxide Anion Gap BUN Creatinine Estim Creat Clear Calc Estimated GFR Glucose POC Capillary Glucose Calcium Total Bilirubin AST ALT Alkaline Phosphatase Total Protein Albumin RPR Non-reactive Blood Type A Positive Antibody Screen Negative Crossmatch See Detail 11/01/20 11/01/20 11/01/20 11:03 17:17 18:00 WBC RBC Hgb 9.9 L D 8.8 L Hct 31.1 L 27.2 L MCV MCH MCHC RDW Plt Count MPV Immature Gran % (Auto) Neut % (Auto) Lymph % (Auto) [place] % (Auto) Eos % (Auto) Baso % (Auto) Lymph # (Auto) [place] # (Auto) Eos # (Auto) Baso # (Auto) Abs Immat Gran (auto) Absolute Neuts (auto) Absolute Nucleated RBC Nucleated RBC % % Immature Plt Fraction PT INR APTT 25.2 Fibrinogen 221 D-Dimer Sodium Potassium Chloride Carbon Dioxide Anion Gap BUN Creatinine Estim Creat Clear Calc Estimated GFR Glucose POC Capillary Glucose Calcium Total Bilirubin AST ALT Alkaline Phosphatase Total Protein Albumin RPR Blood Type Antibody Screen Crossmatch 11/01/20 11/01/20 11/01/20 22:41 23:01 23:01 WBC 18.9 H RBC 2.03 L Hgb 6.0 L* Hct 19.6 L* MCV 96.6 D MCH 29.6 MCHC 30.6 L RDW 14.7 H Plt Count 194 MPV 11.5 H Immature Gran % (Auto) 1.0 H Neut % (Auto) 72.7 Lymph % (Auto) 22.0 [place] % (Auto) 3.6 Eos % (Auto) 0.5 Baso % (Auto) 0.2 Lymph # (Auto) 4.16 H [place] # (Auto) 0.7 H Eos # (Auto) 0.1 Baso # (Auto) 0.0 Abs Immat Gran (auto) 0.19 H Absolute Neuts (auto) 13.8 H Absolute Nucleated RBC 0.0 Nucleated RBC % 0.2 % Immature Plt Fraction PT INR APTT Fibrinogen D-Dimer Sodium 126 L Potassium 4.1 Chloride 101 Carbon Dioxide 12 L Anion Gap 13 BUN 12 Creatinine 0.90 Estim Creat Clear Calc 85 Estimated GFR > 60 Glucose 220 H POC Capillary Glucose 193 H Calcium 7.3 L Total Bilirubin 0.2 AST 34 ALT 19 Alkaline Phosphatase 70 Total Protein 4.0 L Albumin 2.1 L RPR Blood Type Antibody Screen Crossmatch 11/01/20 11/01/20 11/01/20 23:01 23:01 23:01 WBC RBC Hgb Hct MCV MCH MCHC RDW Plt Count MPV Immature Gran % (Auto) Neut % (Auto) Lymph % (Auto) [place] % (Auto) Eos % (Auto) Baso % (Auto) Lymph # (Auto) [place] # (Auto) Eos # (Auto) Baso # (Auto) Abs Immat Gran (auto) Absolute Neuts (auto) Absolute Nucleated RBC Nucleated RBC % % Immature Plt Fraction PT 13.5 INR 1.0 APTT 25.9 Fibrinog
--- NOTE | 2020-11-02 11:55 | PM.OBPNVD ---
OB - PN: Subj Subjective Date/time seen: 11/02/20 11:55 Interval history: resting more comfortably no SOB no chest pain Patient comments: pain well controlled (now well controlled but not through night; minimal pain meds received through night) [place] baby status: doing well OB - PN: Obj Data Labs CBC & Chem 7: 11/02/20 04:26 11/02/20 04:26 Labs: Laboratory Results - last 24 hr 10/31/20 10/31/20 10/31/20 12:05 12:05 12:05 WBC 7.1 RBC 4.73 Hgb 13.7 Hct 41.5 MCV 87.7 MCH 29.0 MCHC 33.0 RDW 14.5 Plt Count 170 MPV 11.0 H Immature Gran % (Auto) Neut % (Auto) Lymph % (Auto) [place] % (Auto) Eos % (Auto) Baso % (Auto) Lymph # (Auto) [place] # (Auto) Eos # (Auto) Baso # (Auto) Abs Immat Gran (auto) Absolute Neuts (auto) Absolute Nucleated RBC Nucleated RBC % % Immature Plt Fraction PT INR APTT Fibrinogen D-Dimer Sodium Potassium Chloride Carbon Dioxide Anion Gap BUN Creatinine Estim Creat Clear Calc Estimated GFR Glucose POC Capillary Glucose Calcium Total Bilirubin AST ALT Alkaline Phosphatase Total Protein Albumin RPR Non-reactive Blood Type A Positive Antibody Screen Negative Crossmatch See Detail 11/01/20 11/01/20 11/01/20 17:17 18:00 22:41 WBC RBC Hgb 8.8 L Hct 27.2 L MCV MCH MCHC RDW Plt Count MPV Immature Gran % (Auto) Neut % (Auto) Lymph % (Auto) [place] % (Auto) Eos % (Auto) Baso % (Auto) Lymph # (Auto) [place] # (Auto) Eos # (Auto) Baso # (Auto) Abs Immat Gran (auto) Absolute Neuts (auto) Absolute Nucleated RBC Nucleated RBC % % Immature Plt Fraction PT INR APTT 25.2 Fibrinogen 221 D-Dimer Sodium Potassium Chloride Carbon Dioxide Anion Gap BUN Creatinine Estim Creat Clear Calc Estimated GFR Glucose POC Capillary Glucose 193 H Calcium Total Bilirubin AST ALT Alkaline Phosphatase Total Protein Albumin RPR Blood Type Antibody Screen Crossmatch 11/01/20 11/01/20 11/01/20 23:01 23:01 23:01 WBC 18.9 H RBC 2.03 L Hgb 6.0 L* Hct 19.6 L* MCV 96.6 D MCH 29.6 MCHC 30.6 L RDW 14.7 H Plt Count 194 MPV 11.5 H Immature Gran % (Auto) 1.0 H Neut % (Auto) 72.7 Lymph % (Auto) 22.0 [place] % (Auto) 3.6 Eos % (Auto) 0.5 Baso % (Auto) 0.2 Lymph # (Auto) 4.16 H [place] # (Auto) 0.7 H Eos # (Auto) 0.1 Baso # (Auto) 0.0 Abs Immat Gran (auto) 0.19 H Absolute Neuts (auto) 13.8 H Absolute Nucleated RBC 0.0 Nucleated RBC % 0.2 % Immature Plt Fraction PT 13.5 INR 1.0 APTT 25.9 Fibrinogen 213 L D-Dimer 3.88 H Sodium 126 L Potassium 4.1 Chloride 101 Carbon Dioxide 12 L Anion Gap 13 BUN 12 Creatinine 0.90 Estim Creat Clear Calc 85 Estimated GFR > 60 Glucose 220 H POC Capillary Glucose Calcium 7.3 L Total Bilirubin 0.2 AST 34 ALT 19 Alkaline Phosphatase 70 Total Protein 4.0 L Albumin 2.1 L RPR Blood Type Antibody Screen Crossmatch 11/01/20 11/01/20 11/02/20 23:01 23:01 04:26 WBC 20.7 H RBC 3.17 L Hgb 9.5 L D Hct 29.0 L MCV 91.5 D MCH 30.0 MCHC 32.8 RDW 13.5 Plt Count 153 MPV 10.6 H Immature Gran % (Auto) 1.0 H Neut % (Auto) 79.9 H Lymph % (Auto) 12.7 L [place] % (Auto) 6.3 Eos % (Auto) 0.0 Baso % (Auto) 0.1 L Lymph # (Auto) 2.63 [place] # (Auto) 1.3 H Eos # (Auto) 0.0 Baso # (Auto) 0.0 Abs Immat Gran (auto) 0.20 H Absolute Neuts (auto) 16.5 H Absolute Nucleated RBC 0.0 Nucleated RBC % 0.2 % Immature Plt Fraction 6.5 PT INR APTT Fibrinogen Cancelled D-Dimer Cancelled [place]
[2020-11-02 13:41] LABS: Mean Corpuscular HGB Conc 33.5 g/dl (32-36); Mean Corpuscular Hemoglobin 29.8 pg (26-34); Mean Corpuscular Volume 88.9 fl (80-100); Mean Platelet Volume 10.9 fl (7.4-10.4); Platelet Count Result 111 k/mm3 (150-375); Red Blood Count 2.35 M/mm3 (4.2-5.4); Red Cell Distribution Width 13.8 % (11.5-14.5); White Blood Count 16.5 K/mm3 (4.5-10.0)
[2020-11-02 13:44] LABS: Hematocrit 20.9 % (37.0-47.0)
[2020-11-02 15:00] LABS: Fibrinogen 424 mg/dl (215-510)
[2020-11-02] MEDS: DOCUSATE SODIUM 100 MG CAPSULE PO ×3 (17:49→20:46)
[2020-11-02] MEDS: POLYSACCHARIDE IRON COMPLEX 150 MG CAPSULE PO ×2 (17:50→20:46)
[2020-11-02 20:34] LABS: Glucose Point of Care 91 mg/dl (65-105)
[2020-11-02] MEDS: MULTIVIT/MIN/PREN/FOL AC/IRON TABLET 1 TAB PO (20:45)
[2020-11-02] MEDS: ONDANSETRON INJ 4 MG/2 ML VIAL IV PUSH (20:45)
--- NOTE | 2020-11-02 20:54 | PC.NURSE ---
1200 Breast pump brought to pt and set up; echo cardi
--- NOTE | 2020-11-02 20:56 | PC.NURSE ---
Addendum entered by Maylin Campbell RN 11/02/20 20:57: this was done about noon today. Original Note: Breast pump brought to pt and set up. Nurse shown set-up and how to start the pump cycle. Pt unable to pump at this time.
--- NOTE | 2020-11-02 20:57 | PC.NURSE ---
[id number] Nurse visited with pt and assisted her with pumping her breasts. 24mm flanges used, and pt reported comfortable pumping. small droplets seen from R breast. Pt encouraged to pump again at least one time tonight, and then rest through the night and resume pumping tomorrow. She agreed. ICU Nurse shown care of equipment.
[2020-11-02] MEDS: TRANEXAMIC ACID 1,000MG/ISO100 1,000 MG/100 ML BAG 200 MG IVPB (21:04)
[2020-11-02] MEDS: SIMETHICONE 80 MG TAB.CHEW PO (21:04)
[2020-11-02 21:40] LABS: Hematocrit 30.7 % (37.0-47.0); Hemoglobin 10.3 g/dL (12.0-15.0); Immature Platelet Fraction Pct 5.1 % (0.9-11.2); Mean Corpuscular HGB Conc 33.6 g/dl (32-36); Mean Corpuscular Hemoglobin 29.8 pg (26-34); Mean Corpuscular Volume 88.7 fl (80-100); Mean Platelet Volume 9.9 fl (7.4-10.4); Platelet Count Result 116 k/mm3 (150-375); Red Blood Count 3.46 M/mm3 (4.2-5.4); Red Cell Distribution Width 15.3 % (11.5-14.5); White Blood Count 17.2 K/mm3 (4.5-10.0)
[2020-11-02] MEDS: METOCLOPRAMIDE HCL INJ 10 MG/2 ML VIAL IV PUSH (21:45)
[2020-11-03] VITALS (12 sets, daily range): BP systolic 110–158; BP diastolic 63–87; PULSE 77–102; RESP 15–31; TEMP 36.6–37.9; O2SAT 94–100
[2020-11-03] MEDS: MORPHINE SULFATE (*CRX) 2 MG/ML INJ IV PUSH (00:18)
[2020-11-03] MEDS: ZOLPIDEM TARTRATE (*CRX) 5 MG TABLET PO (02:53)
[2020-11-03] MEDS: SIMETHICONE 80 MG TAB.CHEW PO ×2 (02:54→12:07)
[2020-11-03] MEDS: METOCLOPRAMIDE HCL INJ 10 MG/2 ML VIAL IV PUSH (03:56)
[2020-11-03] MEDS: SODIUM CHLORIDE 0.9% IV 1,000 ML 100 ML IV CONT (03:57)
[2020-11-03] MEDS: TRANEXAMIC ACID 1,000MG/ISO100 1,000 MG/100 ML BAG 200 MG IVPB (05:37)
[2020-11-03 06:23] LABS: Basophils Percent Auto 0.2 % (0.2-1.2); Hemoglobin 9.7 g/dL (12.0-15.0); Immature Granulocyte Absolute 0.28 K/mm3 (0.00-0.031); Immature Granulocyte Percent A 1.5 % (0-0.5); Immature Platelet Fraction Pct 4.9 % (0.9-11.2); Lymphocytes Absolute Auto 1.32 K/mm3 (0.9-3.2); Lymphocytes Percent Auto 7.2 % (18.3-44.2); Mean Corpuscular HGB Conc 34.6 g/dl (32-36); Mean Corpuscular Hemoglobin 29.5 pg (26-34); Mean Corpuscular Volume 85.1 fl (80-100); Mean Platelet Volume 10.3 fl (7.4-10.4); Monocytes Absolute Auto 1.3 K/mm3 (0.1-0.6); Neutrophils Absolute Auto 15.4 K/mm3 (1.3-6.7); Neutrophils Percent Auto 84.1 % (45.5-73.1); Nucleated Red Blood Cells Perc 0.2 % (0.0-0.2); Platelet Count Result 109 k/mm3 (150-375); Red Blood Count 3.29 M/mm3 (4.2-5.4); White Blood Count 18.3 K/mm3 (4.5-10.0)
[2020-11-03 06:24] LABS: Alanine Aminotransferase 16 U/L (4-35); Albumin Level 2.8 g/dL (3.5-5.1); Alkaline Phosphatase 82 U/L (38-126); Anion Gap 4 mmol/L (8-16); Aspartate Amino Transferase 49 U/L (14-36); Bilirubin,Total 0.3 mg/dL (0.2-1.3); Blood Urea Nitrogen 11 mg/dL (7-17); Calcium 8.2 mg/dL (8.4-10.2); Carbon Dioxide 22 mmol/L (22-30); Chloride 107 mmol/L (98-107); Estimated CRCL calculation 178 ml/min; Estimated Glomerular Filt Rate > 60; Glucose 126 mg/dL (65-110); Potassium 4.5 mmol/L (3.4-5.0); Sodium 133 mmol/L (137-145)
[2020-11-03 08:35] LABS: Lactic Acid Reflex 1.1 mmol/L (0.7-2.1)
[2020-11-03 08:36] LABS: INR 0.9; Prothrombin Time 12.5 Seconds (11.1-14.7)
[2020-11-03] MEDS: DOCUSATE SODIUM 100 MG CAPSULE PO ×2 (08:36→16:12)
[2020-11-03] MEDS: POLYSACCHARIDE IRON COMPLEX 150 MG CAPSULE PO ×2 (08:36→16:12)
[2020-11-03 08:37] LABS: Partial Thromboplastin Time 32.2 SECONDS (22.3-36.8)
[2020-11-03] MEDS: MULTIVIT/MIN/PREN/FOL AC/IRON TABLET 1 TAB PO (08:37)
--- NOTE | 2020-11-03 09:32 | PM.OBPNVD ---
OB - PN: Subj Subjective Date/time seen: 11/03/20 09:32 Interval history: feeling better; pain under control; ambulation in halls this am; up to chair most of night episode of nausea and vomiting last evening but feels better since then OB - PN: Obj Data Labs CBC & Chem 7: 11/03/20 06:05 11/03/20 06:05 Labs: Laboratory Results - last 24 hr 10/31/20 11/02/20 11/02/20 12:05 13:17 13:17 WBC 16.5 H RBC 2.35 L Hgb 7.0 L Hct 20.9 L* MCV 88.9 MCH 29.8 MCHC 33.5 RDW 13.8 Plt Count 111 L MPV 10.9 H Immature Gran % (Auto) Neut % (Auto) Lymph % (Auto) Shannon % (Auto) Eos % (Auto) Baso % (Auto) Lymph # (Auto) Shannon # (Auto) Eos # (Auto) Baso # (Auto) Abs Immat Gran (auto) Absolute Neuts (auto) Absolute Nucleated RBC Nucleated RBC % % Immature Plt Fraction PT INR APTT Fibrinogen 424 Sodium Potassium Chloride Carbon Dioxide Anion Gap BUN Creatinine Estim Creat Clear Calc Estimated GFR Glucose POC Capillary Glucose Lactic Acid Calcium Total Bilirubin AST ALT Alkaline Phosphatase Total Protein Albumin TSH (Reflex) Blood Type A Positive Antibody Screen Negative Crossmatch See Detail 11/02/20 11/02/20 11/02/20 13:17 13:17 20:31 WBC Cancelled RBC Cancelled Hgb Cancelled Hct Cancelled MCV Cancelled MCH Cancelled MCHC Cancelled RDW Cancelled Plt Count Cancelled MPV Cancelled Immature Gran % (Auto) Neut % (Auto) Lymph % (Auto) Shannon % (Auto) Eos % (Auto) Baso % (Auto) Lymph # (Auto) Shannon # (Auto) Eos # (Auto) Baso # (Auto) Abs Immat Gran (auto) Absolute Neuts (auto) Absolute Nucleated RBC Nucleated RBC % % Immature Plt Fraction Cancelled PT INR APTT Fibrinogen Sodium Potassium Chloride Carbon Dioxide Anion Gap BUN Creatinine Estim Creat Clear Calc Estimated GFR Glucose POC Capillary Glucose 91 Lactic Acid Calcium Total Bilirubin AST ALT Alkaline Phosphatase Total Protein Albumin TSH (Reflex) 1.430 Blood Type Antibody Screen Crossmatch 11/02/20 11/03/20 11/03/20 21:33 06:05 06:05 WBC 17.2 H 18.3 H RBC 3.46 L 3.29 L Hgb 10.3 L D 9.7 L Hct 30.7 L 28.0 L MCV 88.7 85.1 MCH 29.8 29.5 MCHC 33.6 34.6 RDW 15.3 H 15.0 H Plt Count 116 L 109 L MPV 9.9 10.3 Immature Gran % (Auto) 1.5 H Neut % (Auto) 84.1 H Lymph % (Auto) 7.2 L Shannon % (Auto) 7.0 Eos % (Auto) 0.0 Baso % (Auto) 0.2 Lymph # (Auto) 1.32 Shannon # (Auto) 1.3 H Eos # (Auto) 0.0 Baso # (Auto) 0.0 Abs Immat Gran (auto) 0.28 H Absolute Neuts (auto) 15.4 H Absolute Nucleated RBC 0.0 Nucleated RBC % 0.2 % Immature Plt Fraction 5.1 4.9 PT INR APTT Fibrinogen Sodium 133 L Potassium 4.5 Chloride 107 Carbon Dioxide 22 Anion Gap 4 L BUN 11 Creatinine 0.40 L Estim Creat Clear Calc 178 Estimated GFR > 60 Glucose 126 H POC Capillary Glucose Lactic Acid Calcium 8.2 L Total Bilirubin 0.3 AST 49 H ALT 16 Alkaline Phosphatase 82 Total Protein 6.0 L Albumin 2.8 L TSH (Reflex) Blood Type Antibody Screen Crossmatch 11/03/20 11/03/20 07:56 07:56 WBC RBC Hgb Hct MCV MCH MCHC RDW Plt Count MPV Immature Gran % (Auto) Neut % (Auto) Lymph % (Auto) Shannon % (Auto) Eos % (Auto) Baso % (Auto) Lymph # (Auto) Shannon # (Auto) Eos # (Auto) Baso # (Auto) Abs Immat Gran (auto) Absolute Neuts (auto) Absolute Nucleated RBC Nucleated RBC % % Immature Plt Fraction PT 12.5 INR 0.9 APTT 32.2 Fibrinogen Sodium Potassium Chloride Carbon Dioxide Anion Gap BUN Creat
--- NOTE | 2020-11-03 10:41 | WPDINTPN ---
Progress Note: A&P Assessment and Plan (1) Postoperative tachycardia and tachypnea: Code(s): I97.89 - Other postprocedural complications and disorders of the circulatory system, not elsewhere classified; J95.89 - Other postprocedural complications and disorders of respiratory system, not elsewhere classified Status: Acute Assessment and Plan: RESOLVED: Tachycardia could be related to anemia, postoperative bleeding, uncontrolled pain, infection, anxiety, PE, and aortic fluid embolism cardiomyopathy -CTA chest that showed a PE -pain is being controlled with pain medications, patient has received quite a bit of pain medications. -PATIENT WAS ADEQUATELY FLUID-RESUSCITATED WITH IV FLUIDS AND PACKED RBCS -BLOOD AND URINE CULTURES HAVE BEEN OBTAINED AND PENDING -status post cefazolin perioperatively -will control pain (2) Post-op bleeding: Status: Acute Assessment and Plan: Patient status post on 11/01/2020: Patient had postoperative bleeding with hemoglobin dropping to 6.0 status post ex lap and evacuation of clot according to the notes : Clot in C2 was noted in the left lower quadrant and the broad ligament. Due to the large size of the fibroids, OBGYN was unable to deliver the uterus to the incision and evacuated the upper blood with pool suction by feel and not by visualization so they could be blood still in those areas. -patient may need to go back to the OR, decision to be made by the OBGYN. - 11/02/2020 patient received distal units of packed RBCs for hemoglobin of 7.0,. Hemoglobin post transfusion was 10.3 and 9.7 this morning. (3) Anemia: Code(s): D64.9 - Anemia, unspecified Status: Acute Assessment and Plan: Anemia likely post hemorrhagic status post -patient has been transfused 2 units of packed RBCs, hemoglobin was 6.0 prior to transfusion and 9.5 post transfusion. -continue to monitor H&H q.6 hours -will transfuse PRBC p.r.n. (4) delivery delivered: Code(s): O82 - Encounter for delivery without indication Status: Acute Assessment and Plan: Patient 11/01/2020: Patient had a LTCS and BTL (5) Hyponatremia: Code(s): E87.1 - Hypo-osmolality and hyponatremia Status: Acute Assessment and Plan: Patient was on D5 0.45% saline, which could have caused hyponatremia -improving (6) Hypocalcemia: Code(s): E83.51 - Hypocalcemia Status: Acute Assessment and Plan: Patient's albumin is 2.1, corrected calcium is within normal limits (7) DVT prophylaxis: Code(s): Z29.9 - Encounter for prophylactic measures, unspecified Status: Acute Assessment and Plan: SCDs, no chemoprophylaxis secondary to acute bleed and anemia Additional Plan Discussed with patient at length and updated with her condition and plan of care. I answered all questions. She has been requesting for more pain medications which were ordered. Code status: Full code Critical care time spent: 32 minutes patient will be transferred to OBGYN unit This dictation may have been done utilizing a voice recognition system. Attempts have been made to correct errors. However, there may be uncorrected grammatical, spelling, and recognition errors present. Due to a high probability of clinically significant, life threatening deterioration, the patient required my highest level of preparedness to intervene emergently and I personally spent this critical care time directly and personally managing the patient. This critical care time included obtaining a history; examining the patient; pulse oximetry; ordering and review of studies; arranging urgent treatment with development of a management plan; evaluation of patient's response to treatment; frequent reassessment; and discussions with other providers. It was exclusive of separately billable procedures and treating other patients and teaching time. Please see Assessment and Plan
--- NOTE | 2020-11-03 11:22 | PC.NURSE ---
This patient, Rossi Calvin, was transferred to [[id number] ] on 11/03/20 at 1115. Personal belongings sent with patient. Report given to [ Naila COX]. Appropriate documentation sent with patient.
[2020-11-03] MEDS: HYDROcodone/acetaminophen (*CRX) 10-325 MG TABLET 1 TAB PO ×2 (12:07→22:28)
[2020-11-03] MEDS: HYDROcodone/acetaminophen (*CRX) 5-325 MG TABLET 1 TAB PO (16:12)
--- NOTE | 2020-11-03 19:04 | PC.NURSE ---
11/03/20 @1130 Pt received from ICU. Pt stable and awake, moved with assistance from wheelchair to bed. Oriented to room and procedures. Discussed plan of care and pt agrees.
[2020-11-04] MEDS: HYDROcodone/acetaminophen (*CRX) 10-325 MG TABLET 1 TAB PO (04:32)
[2020-11-04] MEDS: BISACODYL 10 MG SUPPOSITORY RECTAL (04:49)
[2020-11-04] MEDS: SIMETHICONE 80 MG TAB.CHEW PO ×2 (04:49→15:25)
[2020-11-04] MEDS: METOCLOPRAMIDE HCL INJ 10 MG/2 ML VIAL IV PUSH (04:49)
[2020-11-04 05:45] VITALS: BP 126/76; PULSE 73; RESP 36; TEMP 35.6; O2SAT 88
--- NOTE | 2020-11-04 05:54 | PC.NURSE ---
0505:Transported patient to xray via wheelchair 0525: Returned to floor with patient via wheelchair, tolerated well.
[2020-11-04 07:30] VITALS: BP 110/69; PULSE 62; RESP 20; TEMP 36.9; O2SAT 93
--- NOTE | 2020-11-04 10:30 | PC.NURSE ---
Consult with pt., mother is listed as wanting to breastfeed. has been bottle fed with separation of mother in ICU. Mother has been set up with a breastpump. Mother has not been pumping. Offered assist with pump or putting to breast. Mother reports she is not up to pumping or putting to breast and may put to breast once her milk comes in if she feels up to it. Mother reports she is comfortable with bottle feed and will decided later. Discussed stimulation and milk supply.
--- NOTE | 2020-11-04 11:42 | PM.OBPNVD ---
OB - PN: Subj Subjective Date/time seen: 11/04/20 11:42 Interval history: woke at 0430 with significant abdominal pain felt like gas pain at that time RN reported absent bowel sounds and increased resp rate. Now pain minimal after last pain pill at 0430 hasn't needed pain meds OB - PN: Obj Data Labs CBC & Chem 7: 11/03/20 06:05 11/03/20 06:05 Labs: Laboratory Results - last 24 hr 10/31/20 12:05 Crossmatch See Detail Imaging Radiologist's impression: Impressions Abdomen X-Ray 11/04/20 09:04 IMPRESSION: 1. Multiple mildly dilated loops of small bowel which could represent either postoperative ileus or obstruction. 2. No evident free intraperitoneal gas. Sensitivity is limited by positioning of the standing radiograph which excludes the apex of the diaphragm. If there is clinical concern for perforation or free intraperitoneal gas would recommend repeat upright or decubitus imaging. OB - PN A/P Assessment and Plan (1) delivery delivered: Code(s): O82 - Encounter for delivery without indication Status: Acute Assessment and Plan: Continue post op care (2) Anemia: Code(s): D64.9 - Anemia, unspecified Status: Acute Assessment and Plan: vital stable ambulation without symptoms iron (3) Postoperative ileus: Code(s): K91.89 - Other postprocedural complications and disorders of digestive system; K56.7 - Ileus, unspecified Status: Acute Assessment and Plan: mild post op ileus no nausea or vomiting plan NPO, Reglan, mylicon and ambulation Time Spent With Patient Time: Total time spent is greater than 50% in coordination of care (as documented) at patient's floor/unit and/or counseling patient: Exam Const: General: no acute distress, alert and other (up to chair) GI: GI Palp: Yes Soft to palpation and Yes Other GI palpation findings present (fundus firm ) Percussion: Yes tympanic to percussion Auscultation: Hypoactive bowel sounds present
[2020-11-04 11:52] VITALS: BP 132/73; PULSE 67; RESP 18; TEMP 37.2; O2SAT 98
[2020-11-04 12:00] VITALS: PULSE 67; RESP 18; O2SAT 93
[2020-11-04] MEDS: DOCUSATE SODIUM 100 MG CAPSULE PO ×2 (12:42→20:34)
[2020-11-04] MEDS: MULTIVIT/MIN/PREN/FOL AC/IRON TABLET 1 TAB PO (12:42)
[2020-11-04] MEDS: ACETAMINOPHEN 500 MG TABLET PO ×2 (12:42→20:34)
[2020-11-04] MEDS: SODIUM CHLORIDE 0.9% IV 1,000 ML 125 ML IV CONT ×2 (15:15→23:11)
[2020-11-04] MEDS: HYDROcodone/acetaminophen (*CRX) 5-325 MG TABLET 1 TAB PO ×2 (15:31→23:10)
[2020-11-04 19:44] VITALS: BP 118/69; PULSE 67; PULSE 72; RESP 18; TEMP 36.9; O2SAT 93; O2SAT 94
[2020-11-04 20:00] VITALS: BP 133/75; PULSE 75; RESP 18; TEMP 37; O2SAT 98
[2020-11-04] MEDS: POLYSACCHARIDE IRON COMPLEX 150 MG CAPSULE PO (20:34)
[2020-11-05] VITALS (7 sets, daily range): BP systolic 116–135; BP diastolic 71–88; PULSE 57–78; RESP 18; TEMP 36.4–37.2; O2SAT 94–100
[2020-11-05] MEDS: ACETAMINOPHEN 500 MG TABLET PO ×2 (05:04→19:45)
[2020-11-05] MEDS: POLYSACCHARIDE IRON COMPLEX 150 MG CAPSULE PO ×2 (07:29→17:01)
[2020-11-05] MEDS: HYDROcodone/acetaminophen (*CRX) 5-325 MG TABLET 1 TAB PO ×3 (07:30→17:01)
[2020-11-05] MEDS: DOCUSATE SODIUM 100 MG CAPSULE PO ×2 (07:31→17:01)
[2020-11-05] MEDS: SIMETHICONE 80 MG TAB.CHEW PO ×3 (07:31→17:01)
[2020-11-05] MEDS: MULTIVIT/MIN/PREN/FOL AC/IRON TABLET 1 TAB PO (07:32)
--- NOTE | 2020-11-05 07:42 | PM.OBPNVD ---
OB - PN: Subj Subjective Date/time seen: 11/05/20 07:42 Interval history: +flatus; minimal pain; appetite has returned OB - PN: Obj Data Labs CBC & Chem 7: 11/03/20 06:05 11/03/20 06:05 Imaging Radiologist's impression: Impressions Abdomen X-Ray 11/04/20 09:04 IMPRESSION: 1. Multiple mildly dilated loops of small bowel which could represent either postoperative ileus or obstruction. 2. No evident free intraperitoneal gas. Sensitivity is limited by positioning of the standing radiograph which excludes the apex of the diaphragm. If there is clinical concern for perforation or free intraperitoneal gas would recommend repeat upright or decubitus imaging. OB - PN A/P Assessment and Plan (1) Postoperative ileus: Code(s): K91.89 - Other postprocedural complications and disorders of digestive system; K56.7 - Ileus, unspecified Status: Acute Assessment and Plan: resolved advance diet (2) delivery delivered: Code(s): O82 - Encounter for delivery without indication Status: Acute Assessment and Plan: continue post op care (3) Anemia: Code(s): D64.9 - Anemia, unspecified Status: Acute Assessment and Plan: iron and Lysteda Time Spent With Patient Time: Total time spent is greater than 50% in coordination of care (as documented) at patient's floor/unit and/or counseling patient: Exam Const: General: comfortable and no acute distress GI: Inspection: other (inc c/d/i) GI Palp: Yes abdominal tenderness (mild), Yes Soft to palpation and Yes Other GI palpation findings present (fundus firm; fibroid RUQ) Percussion: Yes tympanic to percussion (minimal) Auscultation: normoactive bowel sounds
[2020-11-06] VITALS: BP 140/73; PULSE 67; RESP 16; TEMP 36.8; O2SAT 98
[2020-11-06 04:00] VITALS: BP 132/71; PULSE 72; RESP 16; TEMP 37.4; O2SAT 98
[2020-11-06] MEDS: HYDROcodone/acetaminophen (*CRX) 5-325 MG TABLET 1 TAB PO ×2 (04:36→10:17)
--- NOTE | 2020-11-06 05:21 | P.PNOB_ITS ---
OB - PN: Subj Subjective Date/time seen: 11/06/20 05:21 Interval history: +flatus; minimal pain; appetite has returned Patient comments: no complaints, pain well controlled and tolerating diet (tolerating regular diet) [place] baby status: doing well OB - PN: Obj Data Labs CBC & Chem 7: 11/03/20 06:05 11/03/20 06:05 OB - PN A/P Assessment and Plan (1) Postoperative ileus: Code(s): K91.89 - Other postprocedural complications and disorders of digestive system; K56.7 - Ileus, unspecified Status: Acute Assessment and Plan: resolved tolerating regular diet (2) delivery delivered: Code(s): O82 - Encounter for delivery without indication Status: Acute Assessment and Plan: dc home (3) Anemia: Code(s): D64.9 - Anemia, unspecified Status: Acute Assessment and Plan: iron BID x 8 wks Plan Plan: discharge home Time Spent With Patient Time: Total time spent is greater than 50% in coordination of care (as documented) at patient's floor/unit and/or counseling patient: Exam Const: General: comfortable, no acute distress, alert and awake GI: Inspection: other (inc c/d/i) GI Palp: Yes Soft to palpation and Yes Other GI palpation findings present (fundus firm nt) Auscultation: normoactive bowel sounds
[2020-11-06 08:05] VITALS: BP 137/75; PULSE 64; RESP 18; TEMP 37.4; O2SAT 99
[2020-11-06 09:00] VITALS: PULSE 64; RESP 18; O2SAT 99
--- NOTE | 2020-11-06 09:00 | PC.NURSE ---
Consult with pt., mother reports she put to breast last night because she felt her milk is in. Mother states latched eagerly without difficulties or discomfort. Mother's plans are to breast and bottle feed, she does not care to pump. She will put infant to breast, if she does not feel infant is satisfied she will then supplement with formula. Discussed stimulation and milk supply and keeping supply up. Reviewed infant feeding cues, frequencies, duration of feedings, feeding elimination flow sheet, and signs of adequate intake. Mother is feeding as required and waking infant to feed if needed. Infant is currently meeting outcomes for weight, output, jaundice and feeding frequencies. Mother states she feels confident to continue breast/bottle feeding at home. Reviewed transition to breast milk, signs of adequate intake, and engorgement/relief. Instructed to call ICP if intake/output less than required. Reviewed regular medications mother is taking. Information provided per Lisa. Reviewed community resources on the [facility] website and in the Mom/Baby guide. Information on outpatient services provided. Mother has no further questions at this time.
[2020-11-06] MEDS: DOCUSATE SODIUM 100 MG CAPSULE PO (10:16)
[2020-11-06] MEDS: POLYSACCHARIDE IRON COMPLEX 150 MG CAPSULE PO (10:16)
[2020-11-06] MEDS: MULTIVIT/MIN/PREN/FOL AC/IRON TABLET 1 TAB PO (10:17)
[2020-11-07 09:53] VITALS: BP 137/79; PULSE 78; RESP 20; O2SAT 100
== END 2020-11-06 10:48 | disposition home or self-care (01) | DRG 784 ==
LOC: ANHLDR 08:32 → ANHOB2 11:27 → ANHICU 11-02 00:10 → ANHOB2 11-03 11:18
PROVIDERS: Internal Medicine; Internal Medicine Cardiovascular Disease; Nurse Anesthetist, Certified Registered; Admitting Provider Obstetrics & Gynecology Gynecology; PCP Internal Medicine; Visit Provider Obstetrics & Gynecology Gynecology
PROC: 10D00Z1 Extraction of Products of Conception, Low, Open Approach (ICD-10-PCS; CPT 59514; principal; 2020-11-01 07:30)
PROC: 0UT94ZZ Resection of Uterus, Percutaneous Endoscopic Approach (ICD-10-PCS; principal; 2020-11-01 18:30)
DX: O34.211 Maternal care for low transverse scar from previous cesarean delivery (principal); O98.32 Other infections with a predominantly sexual mode of transmission complicating childbirth; E87.1 Hypo-osmolality and hyponatremia; K91.89 Other postprocedural complications and disorders of digestive system; K56.7 Ileus, unspecified; D62 Acute posthemorrhagic anemia; I97.89 Other postprocedural complications and disorders of the circulatory system, not elsewhere classified; J95.89 Other postprocedural complications and disorders of respiratory system, not elsewhere classified; N99.820 Postprocedural hemorrhage of a genitourinary system organ or structure following a genitourinary system procedure; O72.1 Other immediate postpartum hemorrhage; N99.840 Postprocedural hematoma of a genitourinary system organ or structure following a genitourinary system procedure; R00.0 Tachycardia, unspecified; Z37.0 Single live birth; Z3A.39 39 weeks gestation of pregnancy; O75.4 Other complications of obstetric surgery and procedures; N83.7 Hematoma of broad ligament; R06.82 Tachypnea, not elsewhere classified; O32.8XX0 Maternal care for other malpresentation of fetus, not applicable or unspecified; A60.00 Herpesviral infection of urogenital system, unspecified; O34.13 Maternal care for benign tumor of corpus uteri, third trimester; D25.2 Subserosal leiomyoma of uterus; O99.214 Obesity complicating childbirth; E66.01 Morbid (severe) obesity due to excess calories; E83.51 Hypocalcemia; Z30.2 Encounter for sterilization
CPT/HCPCS: 36415; 36430; 71275; 74019; 74177; 76705; 80048; 80053; 82948; 83605; 84443; 85014; 85018; 85025; 85027; 85055; 85380; 85384; 85610; 85730; 86592; 86850; 86900; 86901; 86920; 87040; 87086; 88302; 93005; 93306; A9270; J0131; J0690; J1100; J1170; J2270; J2274; J2370; J2405; J2590; J2704; J2765; J3010; J7030; J7050; J7120; P9016; P9017; Q9967

== ENCOUNTER 2024-11-08 07:57 | Emergency (ER) | payer OTHER, SELFPAY ==
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
[2024-11-08 08:07] VITALS: BP 142/71; PULSE 75; RESP 16; TEMP 36.6; O2SAT 100
--- OUTSIDE RECORDS SUMMARY | 2024-11-08 08:15 | XMS_ITS | Clinical Summary ---
Author Organization [facility] Address [address] [place] [address] Phone Care Team Providers Care Prime Broker Name Role Phone Darwin Littlejohn MD Primary Care Provider [phone] Social History Tobacco Use Types Packs/Day Years Used Date Smoking Tobacco: Never Assessed Comments Unknown Sex and Gender Information Value Date Recorded Sex Assigned at Not on file Legal Sex Female 10:55 AM CDT Gender Identity Not on file Sexual Orientation Not on file Plan of Treatment Health Maintenance Due Date Last Done Comments DTAP/TDAP/TD VACCINES (1 - Tdap) 06/30/2003 HEPATITIS B VACCINES (1 of 3 - 19+ 3-dose series) 03/2003 HPV/Cotest (21-29) 2005 HPV VACCINES (1 - 3-dose SCDM series) 06/30/2011 CERVICAL CANCER SCREENING 2014 HPV/Cotest (30-65) 2014 PAP SMEAR 2014 BREAST CANCER SCREENING 2024 INFLUENZA VACCINE (#1) 2024 Insurance BCBS BLUE ACCESS/TRUE BLUE PPO Care Teams Prime Broker Relationship Specialty Start Date End Date Darwin Littlejohn MD PCP - General Internal Medicine 06/17/20
--- OUTSIDE RECORDS SUMMARY | 2024-11-08 08:15 | XMS_ITS | Clinical Summary ---
Author Organization [facility] Address [address] [place] [id number] Care Team Providers Care Hospice Registered Nurse Name Role Phone Pooja Wu STREETS AND BUILDINGS DECORATOR Primary Care Provider [phone] Allergies No known active allergies Social History Tobacco Use Types Packs/Day Years Used Date Smoking Tobacco: Never Smokeless Tobacco: Never Alcohol Use Standard Drinks/Week Comments No 0 (1 standard drink = 0.6 oz pur e alcohol) Comments No Sex and Gender Information Value Date Recorded Sex Assigned at Not on file Legal Sex Female 12:48 PM PUBLISHING MANAGER Gender Identity Not on file Sexual Orientation Not on file Last Filed Vital Signs Vital Sign Reading Time Taken Comments Blood Pressure 127/82 02/25/2018 3:44 PM PUBLISHING MANAGER Pulse 77 02/25/2018 3:44 PM PUBLISHING MANAGER Temperature 36.3 C (97.3 F) 02/25/2018 12:58 PM PUBLISHING MANAGER Respiratory Rate 18 02/25/2018 3:44 PM PUBLISHING MANAGER Oxygen Saturation 99% 02/25/2018 3:44 PM PUBLISHING MANAGER Inhaled Oxygen Concentration - - Weight 90.4 kg (199 lb 4.7 oz) 02/25/2018 12:58 PM PUBLISHING MANAGER Height 157.5 cm (5' 2) 02/25/2018 12:58 PM PUBLISHING MANAGER Body Mass Index 36.45 02/25/2018 12:58 PM PUBLISHING MANAGER Plan of Treatment Health Maintenance Due Date Last Done Comments Cervical Cancer Screening Pa p Smear (Age 30 to 64) Every 3 Years 1984 Annual Physical 06/30/1987 Hepatitis C 2002 DTaP, Tdap and Td Vaccines ( 1 - Tdap) 06/30/2003 Hepatitis B Vaccines (1 of 3 - 19+ 3-dose series) 06/30/2003 HPV Vaccines (1 - 3-dose SCD M series) 06/30/2011 Cervical Cancer Screening Pa ra with HPV Testing (Age 30 to 64) Every 5 Years 2014 Cervical Cancer Screening with HPV 2014 Mammogram Screening 2024 COVID-19 Vaccine ( - 2023-2 5 season) 2024 Meningococcal B Vaccine Aged Out No l onger eligible based on patient's age to complete this topic Meningococcal Vaccine Aged Out No porter bobbi eligible based on patient's age to complete this topic Pneumococcal Vaccine: Pediat rics (0 to 5 Years) and At-Risk Patients (6 to 49 Years) Aged Out No longer eligible b ased on patient's age to complete this topic RSV Immunizations Under 20 Months Aged Out No longer eligible based on patient's age to complete this topic Care Teams Hospice Registered Nurse Relationship Specialty Start Date End Date Pooja Wu FNP [address] [place] [address] PCP - General NURSE PRACTITIONER 02/25/18
--- OUTSIDE RECORDS SUMMARY | 2024-11-08 08:15 | XMS_ITS | Clinical Summary ---
Author Organization [facility] Care Team Providers Care Nurse Researcher Name Role Phone Unavailable Primary Care Provider Unavailabl e Social History Tobacco Use Types Packs/Day Years Used Date Smoking Tobacco: Never Assessed Comments Unknown Sex and Gender Information Value Date Recorded Sex Assigned at Not on file Legal Sex Female 1:01 PM WRAP CHECKER Gender Identity Not on file Sexual Orientation Not on file Plan of Treatment Health Maintenance Due Date Last Done Comments Hepatitis C Virus (HCV) Screening 1984 Hepatitis B Immunization (3 of 3 - 3-dose series) 02/14/2002 12/20/2001, 12/23/1999 Pap Smear 2005 Human Papillomavirus (HPV) Immunization (1 - 3-dose SCDM series) 06/30/2011 Cervical Cancer Screening (CCS) 2014 HPV/Cotest 2014 SARS-COV-2 Immunization ( season) 2023 02/16/2021 Influenza Immunization (#1) 2024 Respiratory Syncytial Virus (RSV) Immunization (Adult) (1 - 1-dose 75+ series) 06/30/2059 DTaP/Tdap/Td Immunization Discontinued 2016, 12/23/1999 TdaP Immunization Completed 09/02/2016 Meningococcal Immunization (ACWY) Aged Out No longer eligible based on patient's age to complete this topic Pneumococcal Immunization Combined Aged Out No longer eligible based on patient's age to complete this topic Rotavirus Immunization Aged Out No lo nger eligible based on patient's age to complete this topic
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
--- OUTSIDE RECORDS SUMMARY | 2024-11-08 08:15 | XMS_ITS | Clinical Summary ---
Author Organization [facility] Address [address] [facility] [place] [address] Care Team Providers Care Supervisor Propellant Charge Loading Name Role Phone Shruthi Hammond MD Primary Care Provider Elizabeth Lopes ROUGH RICE GRADER-OIL DRILLER Unavailable [phone] Source Comments [facility],non-owned Affiliates and Associated Physician Practices is amultiple site organization consisting of ambulatory clinics and hospital sitesin [place], [place], [place] and [place]. This disclosure is being madepursuant to the Care Everywhere program and may not contain all information available regarding this patient. Last updated 17.[facility] Allergies No known active allergies Medications * Be aware that medications may not be up to date on this document. Alwaysverify current medications with the patient. valACYclovir HCl (VALTREX PO) Active albuterol HFA (Proventil; Ventolin; Proair) 108 (90 Base) MCG/ACT inhaler Inhale 1 (one) puff by mouth every 4 hours 6.7 g 1 4 Active Additional Information Patient taking differently: No details specified, Reason: Patient adjusted (Takes PRN), Reported on 09/08/2024 vitamin D, ergocalciferol, (Drisdol) 1.25 MG (47463 UT) capsuleIndicati ons:Vitamin D Deficiency TAKE 1 (ONE) CAPSULE BY MOUTH EVERY 7 DAYS REASONS: VITAMIN D DEFICIENCY 12 capsule 1 5 Active Active Problems Problem Noted Date Diagnosed Date Pure hypercholesterolemia 05/04/2024 Pre-diabetes 05/04/2024 Vitamin D deficiency 05/04/2024 LGA (large for gestational a ge) fetus affecting management of mother 07/08/2016 Encounters Date Type Department Care Team Description 10/07/2024 Refill [facility] [address], [address] [place] [address] Elizabeth Lopes APRN-OIL DRILLER Refill Request 09/08/2024 8:20 AM CDT Office Visit [facility] [address], [address] [place] [address] Elizabeth Lopes, ROUGH RICE GRADER-OIL DRILLER Class 3 severe obesity due to excess calories with body mass index (BMI) of 40.0 to 44.9 in adult, unspecified whether serious comorbidity present (HCC) (Primary Dx); Pre-diabetes; Pure hypercholesterolemia; Vitamin D deficiency 08/10/2024 3:20 PM CDT Office Visit [facility] [address], [address] [place] [address] Shruthi Hammond MD Class 3 severe obesity due to excess calories with body mass index (BMI) of 40.0 to 44.9 in adult, unspecified whether serious comorbidity present (HCC) (Primary Dx); Prediabetes; Right foot pain; Nuñez's neuroma of right foot 08/10/2024 Travel from Last 3 Months Immunizations Immunization Administration Dates Next Due Bao Martinez primary monovalent 12+ yr 0.5mL ,02/16/2021 HEP B VACCINE, PED/ADOL 12/20/2001,12/23/1999 MMR VACCINE 12/23/1999,12/27/1992 TD (AGE 7-ADULT) 12/23/1999 TDAP, HISTORIC VACCINE 09/02/2016 Family History Medical History Relation Name Comments Cancer Maternal Grandfather None Known Mother None Known Other Aneurysm, Brain Paternal Grandmother CVA Paternal Grandmother None Known Sister Relation Name Status Comments Father Unknown Maternal Grandfather Maternal Grandmother Alive Mother Alive Other Paternal Grandfather Unknown Paternal Grandmother Sister Alive Social History Tobacco Use Types Packs/Day Years Used Date Smoking Tobacco: Never Smokeless Tobacco: Never Tobacco Cessation:Counseling Given: No Alcohol Use Standard Drinks/Week Comments Yes 0 (1 standard drink = 0.6 oz pur e alcohol) 3 times per year- 2 drinks PHQ-2 Answer Date Recorded Patient Health Questionnaire-2 Score 0 09/08/2024 Comments No Sex and Gender Information Value Date Recorded Sex Assigned at Not on file Legal Sex Female 2:40 PM CDT Gender Identity Not on file Sexual Orientation Not on file Last Filed Vital Signs Vital Sign Reading Time Taken Comments Blood Pressure 118/64 09/08/2024 8:21 AM CDT Pulse 72 09/08/2024 8:21 AM CDT Temperature 36.6 C (97.9 F) 09/08/2024 8:21 AM CDT Respiratory Rate 14 09/08/2024 8:21 AM CDT Oxygen Saturation 98% 09/08/2024 8:21 AM CDT Inhaled Oxygen Concentration - - Weight 101.7 kg (224 lb 3.2 oz) 09/08/2024 8:21 AM CDT Height 157.5 cm (5' 2) 08/10/2024 3:32 PM CDT Body Mass Index 41.01 08/10/2024 3:32 PM CDT Plan of Treatment Upcoming Encounters Date Type Department Care Team (Late st Contact Info) Description 02/23/2025 9:40 AM HYDRO SPRAYER OPERATOR Office Visit [facility] [address], [address] [place] [address] Elizabeth Lopes, ROUGH RICE GRADER-OIL DRILLER [address] [place] [address] 03/16/2025 8:00 AM HYDRO SPRAYER OPERATOR Office Visit [facility] [address], [address] [place] [address] Elizabeth Lopes, ROUGH RICE GRADER-OIL DRILLER [address] [place] [address] Health Maintenance Due Date Last Done Comments MAMMOGRAM 1984 HEPATITIS B VACCINE (3 of 3 - 3-dose series) 02/14/2002 12/20/2001, 12/23/1999 HPV VACCINE (1 - 3-dose SCDM series) 06/30/2011 COVID-19 VACCINE (3 - 2024-2 6 season) 2024 03/16/2021, 02/16/2021 INFLUENZA VACCINE (#1) 2024 PAP SMEAR 05/11/2025 05/11/2022 (Done Outside Per Report) DTAP/TDAP/TD VACCINES (3 - T d or Tdap) 09/02/2026 09/02/2016, 12/23/1999 SCREENING FOR DIABETES 08/11/2027 08/10/2024, 2024 LIPID TESTING 03/31/2029 03/31/2024 ZOSTER VACCINE (1 of 2) 2034 HEPATITIS C SCREENING Completed 03/31/2024 HIV SCREENING Completed 03/31/2024 DEPRESSION SCREENING Completed 05/04/2024, 02/18/20 24 HIB VACCINE Aged Out No longer eligi ble based on patient's age to complete this topic MENINGOCOCCAL (Group B) VACCINE SHARED DECISION-MAKING Aged Out No longer eligible based on patient's age to complete this topic MENINGOCOCCAL GROUPS A/C/Y/W VACCINE Aged Out No longer eligible based on patient's age to complete this topic PNEUMOCOCCAL VACCINE Aged Out No long er eligible based on patient's age to complete this topic Procedures Procedure Name Priority Date/Time Associated Diagnosis Comments HEMOGLOBIN A1C - POINT OF CARE (AMB) Routine 08/10/2024 4:04 PM CDT Prediabetes LIPID PROFILE Routine 03/31/2024 9:18 AM HYDRO SPRAYER OPERATOR Lipid screening HEPATITIS C ANTIBODY W RFLX PCR Routine 03/31/2024 9:18 AM HYDRO SPRAYER OPERATOR Screen for STD (sexually transmitted disease) HIV-1 HIV-2 ANTIBODY + HIV P24 AG PANEL Routine 03/31/2024 9:18 AM HYDRO SPRAYER OPERATOR Screen for STD (sexually transmitted disease) from Last 3 Months or Most Recently Relevant to Health Maintenance Results * HEMOGLOBIN A1C - POINT OF CARE (AMB) (08/10/2024 4:04 PM CDT) Pathologist [facility] Hemoglobin A1c POCT 5.8 % Expiration Date 04/05/2026 Lot # [id number] QC Verified Yes Yes Blood BLOOD SPECIMEN / Unknown 08/10/2024 4:04 PM CDT Shruthi Hammond MD LAB - POINT OF CARE ORD ERABLES Final Result * HEPATITIS C ANTIBODY W RFLX PCR (03/31/2024 9:18 AM HYDRO SPRAYER OPERATOR) Pathologist [facility] Hepatitis C Antibody Non Reactive Non Reactive [facility] ACCOUNT BILL Comment: Performed at: 01 - [facility] [address] [id number] [employer] Work Supervisor: Hair Byrd PhD, Phone: [phone] Interpretation Comment [facility] ACCOUNT BILL Comment: Not infected with HCV unless early or acute infection is suspected (which may be delayed in an immunocompromised individual), or other evidence exists to indicate HCV infection. Blood BLOOD SPECIMEN / Unknown 03/31/2024 9:18 AM HYDRO SPRAYER OPERATOR 03/31/2024 Narrative [facility] ACCOUNT BILL - 04/01/2024 7:09 AM HYDRO SPRAYER OPERATOR Performed at: - [facility] [address] [id number] [employer] Work Supervisor: Hair Byrd PhD, Phone: [phone] us Elizabeth Lopes ROUGH RICE GRADER-OIL DRILLER LAB - CHEMISTRY ORDERABL ES Final Result [facility] ACCOUNT BILL [address] [place] [address] * HIV-1 HIV-2 ANTIBODY + HIV P24 AG PANEL (03/31/2024 9:18 AM HYDRO SPRAYER OPERATOR) [facility] HIV Screen 4th Generation w Reflex Non Reactive Non Reactive [facility] ACCOUNT BILL Comment: HIV-1/HIV-2 antibodies and HIV-1 p24 antigen were NOT detected. There is no laboratory evidence of HIV infection. HIV Negative Blood BLOOD SPECIMEN / Unknown 03/31/2024 9:18 AM HYDRO SPRAYER OPERATOR 03/31/2024 Narrative [facility] ACCOUNT BILL - 04/01/2024 7:09 AM HYDRO SPRAYER OPERATOR Performed at: - [facility] [address] [id number] [employer] Work Supervisor: Hair Byrd PhD, Phone: [phone] Elizabeth Lopes ROUGH RICE GRADER-OIL DRILLER LAB - CHEMISTRY ORDERABL ES Final Result Performing Organization Address [facility] de Phone Number [facility] ACCOUNT BILL [address] [place] [address] * (ABNORMAL) LIPID PROFILE (03/31/2024 9:18 AM HYDRO SPRAYER OPERATOR) [facility] Cholesterol 207(H) 100 - 199 mg/dL [facility] ACCOUNT BILL Triglycerides 97 0 - 149 mg/dL [facility] ACCOUNT BILL HDL Cholesterol 49 >39 mg/dL [facility] ACCOUNT BILL VLDL Calculated 17 5 - 40 mg/dL [facility] ACCOUNT BILL LDL Calculated 141(H) 0 - 99 mg/dL [facility] ACCOUNT BILL Blood BLOOD SPECIMEN / Unknown 03/31/2024 9:18 AM HYDRO SPRAYER OPERATOR 03/31/2024 Narrative [facility] ACCOUNT BILL - 04/01/2024 7:09 AM HYDRO SPRAYER OPERATOR Performed at: - [facility] [address] [id number] [employer] Work Supervisor: Hair Byrd PhD, Phone: [phone] Elizabeth Lopes APRN-OIL DRILLER LAB - CHEMISTRY ORDERABL ES Final Result Performing Organization Address [facility] de Phone Number [facility] ACCOUNT BILL [address] [place] [address] from Last 3 Months or Most Recently Relevant to Health Maintenance Insurance [employer] ANTHEM Advance Directives Documents on File Type Date Recorded Patient Fisher Pot Expl anation Adv Directive/Living Will/POA 07/07/2016 Care Teams Supervisor Propellant Charge Loading Relationship Specialty Start Date End Date Shruthi Hammond MD [address] [place] [address] PCP - General Internal Medicine 02/18/24 Elizabeth Lopes, ROUGH RICE GRADER-OIL DRILLER [address] [place] [address] [place] [address] PCP - Attributed-[place] [employer] 04/01/24
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
[2024-11-08] MEDS: IBUPROFEN 400 MG TABLET 800 MG PO (08:48)
[2024-11-08] MEDS: ACETAMINOPHEN 500 MG TABLET 1000 MG PO (08:49)
[2024-11-08 09:23] VITALS: BP 130/71; PULSE 68; RESP 18; O2SAT 98
--- OUTSIDE RECORDS SUMMARY | 2024-11-08 09:45 | XMS_ITS | Clinical Summary ---
Author Organization [facility] [employer] Address [address] [place] [address] Care Team Providers Care Consumer Product Advisor Name Role Phone Shruthi Hammond MD Primary Care Provider Elizabeth Lopes ADMINISTRATIVE ACCOUNTANT-RN UNIT MANAGER Unavailable [phone] Source Comments [facility] [employer] [employer],non-owned Affiliates and Associated Physician Practices is amultiple site organization consisting of ambulatory clinics and hospital sitesin [place], [place], [place] and [place]. This disclosure is being madepursuant to the Care Everywhere program and may not contain all information available regarding this patient. Last updated 17.[facility] [employer] [employer] Allergies No known active allergies Medications * [...] 09/08/2024 vitamin D, ergocalciferol, (Drisdol) 1.25 MG (46661 UT) capsuleIndicati ons:Vitamin D Deficiency TAKE 1 (ONE) CAPSULE BY MOUTH EVERY 7 DAYS REASONS: VITAMIN D DEFICIENCY 12 capsule 1 5 Active Active Problems Problem Noted Date Diagnosed Date Pure hypercholesterolemia 05/04/2024 Pre-diabetes 05/04/2024 Vitamin D deficiency 05/04/2024 LGA (large for gestational a ge) fetus affecting management of mother 07/08/2016 Encounters Date Type Department Care Team Description 10/07/2024 Refill [facility] [address], [address] [place] [address] Elizabeth Lopes APRN-RN UNIT MANAGER Refill Request 09/08/2024 8:20 AM CDT Office Visit [facility] [address], [address] [place] [address] Elizabeth Lopes, ADMINISTRATIVE ACCOUNTANT-RN UNIT MANAGER Class 3 severe obesity due to excess calories with body mass index (BMI) of 40.0 to 44.9 in adult, unspecified whether serious comorbidity present (HCC) (Primary Dx); Pre-diabetes; Pure hypercholesterolemia; Vitamin D deficiency 08/10/2024 3:20 PM CDT Office Visit [facility] [address], [address] [place] [address] Shruthi Hammond MD Class 3 severe obesity [...] st Contact Info) Description 02/23/2025 9:40 AM CHIEF INNOVATION OFFICER Office Visit [facility] [address], [address] [place] [address] Elizabeth Lopes, ADMINISTRATIVE ACCOUNTANT-RN UNIT MANAGER [address] [place] [address] 03/16/2025 8:00 AM CHIEF INNOVATION OFFICER Office Visit [facility] [address] [place] [address] Elizabeth Lopes, ADMINISTRATIVE ACCOUNTANT-RN UNIT MANAGER [address] [place], [...] Prediabetes LIPID PROFILE Routine 03/31/2024 9:18 AM CHIEF INNOVATION OFFICER Lipid screening HEPATITIS C ANTIBODY W RFLX PCR Routine 03/31/2024 9:18 AM CHIEF INNOVATION OFFICER Screen for STD (sexually transmitted disease) HIV-1 HIV-2 ANTIBODY + HIV P24 AG PANEL Routine 03/31/2024 9:18 AM CHIEF INNOVATION OFFICER Screen for STD (sexually transmitted disease) from Last 3 Months or Most Recently Relevant to Health Maintenance Results * HEMOGLOBIN A1C - POINT OF CARE (AMB) (08/10/2024 4:04 PM CDT) Pathologist [facility] Hemoglobin A1c POCT 5.8 % Expiration Date 04/05/2026 Lot # [id number] QC Verified Yes Yes Blood BLOOD SPECIMEN / Unknown 08/10/2024 4:04 PM CDT Shruthi Hammond MD LAB - POINT OF CARE ORD ERABLES Final Result * HEPATITIS C ANTIBODY W RFLX PCR (03/31/2024 9:18 AM CHIEF INNOVATION OFFICER) Pathologist [facility] Hepatitis C Antibody Non Reactive Non Reactive [facility] ACCOUNT BILL Comment: Performed at: 01 - [facility] [address] [id number] Cushion Sewer: Hair Byrd PhD, Phone: [phone] Interpretation Comment [facility] ACCOUNT BILL Comment: Not infected with HCV unless early or acute infection is suspected (which may be delayed in an immunocompromised individual), or other evidence exists to indicate HCV infection. Blood BLOOD SPECIMEN / Unknown 03/31/2024 9:18 AM CHIEF INNOVATION OFFICER 03/31/2024 Narrative [facility] ACCOUNT BILL - 04/01/2024 7:09 AM CHIEF INNOVATION OFFICER Performed at: - [facility] [address] [id number] Cushion Sewer: Hair Byrd PhD, Phone: [phone] us Elizabeth Lopes ADMINISTRATIVE ACCOUNTANT-RN UNIT MANAGER LAB - CHEMISTRY ORDERABL ES Final Result [facility] ACCOUNT BILL [address] [place] [address] * HIV-1 HIV-2 ANTIBODY + HIV P24 AG PANEL (03/31/2024 9:18 AM CHIEF INNOVATION OFFICER) [facility] HIV Screen 4th Generation w Reflex Non Reactive Non Reactive [facility] ACCOUNT BILL Comment: HIV-1/HIV-2 antibodies and HIV-1 p24 antigen were NOT detected. There is no laboratory evidence of HIV infection. HIV Negative Blood BLOOD SPECIMEN / Unknown 03/31/2024 9:18 AM CHIEF INNOVATION OFFICER 03/31/2024 Narrative [facility] ACCOUNT BILL - 04/01/2024 7:09 AM CHIEF INNOVATION OFFICER Performed at: - [facility] [address] [id number] Cushion Sewer: Hair Byrd PhD, Phone: [phone] Elizabeth Lopes ADMINISTRATIVE ACCOUNTANT-RN UNIT MANAGER LAB - CHEMISTRY ORDERABL ES Final Result Performing Organization Address [facility] de Phone Number [facility] ACCOUNT BILL [address] [place] [address] * (ABNORMAL) LIPID PROFILE (03/31/2024 9:18 AM CHIEF INNOVATION OFFICER) [facility] Cholesterol 207(H) 100 - 199 mg/dL [facility] ACCOUNT BILL Triglycerides 97 0 - 149 mg/dL [facility] ACCOUNT BILL HDL Cholesterol 49 >39 mg/dL [facility] ACCOUNT BILL VLDL Calculated 17 5 - 40 mg/dL [facility] ACCOUNT BILL LDL Calculated 141(H) 0 - 99 mg/dL [facility] ACCOUNT BILL Blood BLOOD SPECIMEN / Unknown 03/31/2024 9:18 AM CHIEF INNOVATION OFFICER 03/31/2024 Narrative [facility] ACCOUNT BILL - 04/01/2024 7:09 AM CHIEF INNOVATION OFFICER Performed at: - [facility] [address] [id number] Cushion Sewer: Hair Byrd PhD, Phone: [phone] Elizabeth Lopes APRN-RN UNIT MANAGER LAB - CHEMISTRY ORDERABL ES Final Result Performing Organization Address [facility] de Phone Number [facility] ACCOUNT BILL [address] [place] [address] from Last 3 Months or Most Recently Relevant to Health Maintenance Insurance [employer] ANTHEM Advance Directives Documents on File Type Date Recorded Patient Emergency Management System Director Expl anation Adv Directive/Living Will/POA 07/07/2016 Care Teams Consumer Product Advisor Relationship Specialty Start Date End Date Shruthi Hammond MD [address] [place] [address] PCP - General Internal Medicine 02/18/24 Elizabeth Lopes, ADMINISTRATIVE ACCOUNTANT-RN UNIT MANAGER [address] [place] [address] [place] [address] PCP - Attributed-[place] [employer] 04/01/24
--- OUTSIDE RECORDS SUMMARY | 2024-11-08 09:45 | XMS_ITS | Clinical Summary ---
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
--- OUTSIDE RECORDS SUMMARY | 2024-11-08 09:45 | XMS_ITS | Clinical Summary ---
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 AR: WAGNER Report ID: [id number] Reading Location: [id number] Procedure Note Curt Macias MD - 10/29/2024 [...] Curt Macias M.D. AR: WAGNER Report ID: [id number] Reading Location: [place] [address] Cristy NUÑEZ IMG CT PROCEDURES Final Resu [...] Curt Macias M.D. AR: WAGNER Report ID: [id number] Reading Location: [id number] Procedure Note Curt Macias MD - 10/29/2024 [...] Curt Macias M.D. AR: WAGNER Report ID: [id number] Reading Location: [id number] Dioni Stearns Jr., MD IMG CT PROCEDURES [...] Curt Macias M.D. AR: WAGNER Report ID: [id number] Reading Location: [place] [address] Procedure Note Curt Macias MD - 10/29/2024 [...] Curt Macias M.D. AR: WAGNER Report ID: [id number] Reading Location: [id number] us Cristy NUÑEZ IMG CT PROCEDURES Final Resu lt * POCT hCG, urine (10/29/2024 11:10 PM CDT) HCG, ur, POC Negative Negative Comment:Testing performed by : [facility], [address] [place] [address]., [id number] Urine 10/29/2024 11:1 0 PM CDT 10/29/2024 11:10 PM CDT Notinfile Unknown LAB POCT ORDERABLES - DEVICE F inal Result Performing Organization Address [facility] Co de Phone Number [facility] [place] [address] * Hepatitis C antibody (10/03/2015 12:36 PM CDT) Pathologist [facility] Hep C Ab NONREACT NONREACTIVE Comment: Siemens [...] GENERAL ORDERABLES Final Result Performing Organization Address City/[facility]/ZIP Co de Phone Number [facility] HISTORICAL RESULTS from Last 3 Months or Most Recently Relevant to Health Maintenance Insurance BLUE ACCESS CHOICE ID [facility] ANTHEM ACCESS CHOICE ANTHEM ACCESS CHOICE ANTHEM ACCESS CHOICE Member Subscriber Plan / Payer (Ef fective 2023-Present) Name:Rossi Ayala Relation to Subscriber:Self Name:Rossi Ayala Payer ID:[id number] (NAIC) Type:[employer] Address: [address] ANTHEM ACCESS CHOICE Member Subscriber Plan / Payer (Ef fective 2023-Present) Name:Rossi Ayala Relation to Subscriber:Self Name:Rossi Ayala Payer ID:[id number] (NAIC) Type:[employer] Address: [address] Care Teams Managed Care Specialist Relationship Specialty Start Date End Date Elizabeth Lopes NP [address] [facility] [address] [place] [address] PCP - General Nurse Practitioner 10/29/24 Elizabeth Lopes NP [address] [facility] [address] [place] [address] Nurse Practitioner 10/29/24
--- OUTSIDE RECORDS SUMMARY | 2024-11-08 09:45 | XMS_ITS | Clinical Summary ---
Author Organization [facility] Address [address] [place] [address] Care Team Providers Care Destaticizer Feeder Name Role Phone Pooja Wu COMMUNITY HEALTH COUNSELOR Primary Care Provider [phone] Allergies No known active allergies Social History Tobacco Use Types Packs/Day Years Used Date Smoking Tobacco: Never Smokeless Tobacco: Never Alcohol Use Standard Drinks/Week Comments No 0 (1 standard drink = 0.6 oz pur e alcohol) Comments No Sex and Gender Information Value Date Recorded Sex Assigned at Not on file Legal Sex Female 12:48 PM ELEVATOR CONSTRUCTOR HYDRAULIC Gender Identity Not on file Sexual Orientation Not on file Last Filed Vital Signs Vital Sign Reading Time Taken Comments Blood Pressure 127/82 02/25/2018 3:44 PM ELEVATOR CONSTRUCTOR HYDRAULIC Pulse 77 02/25/2018 3:44 PM ELEVATOR CONSTRUCTOR HYDRAULIC Temperature 36.3 C (97.3 F) 02/25/2018 12:58 PM ELEVATOR CONSTRUCTOR HYDRAULIC Respiratory Rate 18 02/25/2018 3:44 PM ELEVATOR CONSTRUCTOR HYDRAULIC Oxygen Saturation 99% 02/25/2018 3:44 PM ELEVATOR CONSTRUCTOR HYDRAULIC Inhaled Oxygen Concentration - - Weight 90.4 kg (199 lb 4.7 oz) 02/25/2018 12:58 PM ELEVATOR CONSTRUCTOR HYDRAULIC Height 157.5 cm (5' 2) 02/25/2018 12:58 PM ELEVATOR CONSTRUCTOR HYDRAULIC Body Mass Index 36.45 02/25/2018 12:58 PM ELEVATOR CONSTRUCTOR HYDRAULIC Plan of Treatment Health Maintenance Due Date [...] age to complete this topic Care Teams Destaticizer Feeder Relationship Specialty Start Date End Date Pooja Wu FNP [address] [place] [address] PCP - General NURSE PRACTITIONER 02/25/18
--- OUTSIDE RECORDS SUMMARY | 2024-11-08 09:45 | XMS_ITS | Clinical Summary ---
Author Organization [facility] Address [address] [place] [address] Phone Care Team Providers Care Concrete Carpenter Name Role Phone Darwin Littlejohn MD Primary Care Provider [phone] Social History Tobacco Use Types Packs/Day Years [...] BCBS BLUE ACCESS/TRUE BLUE PPO Care Teams Concrete Carpenter Relationship Specialty Start Date End Date Darwin Littlejohn MD PCP - General Internal Medicine 06/17/20
== END 2024-11-08 09:30 | disposition home or self-care (01) ==
PROVIDERS: Emergency Provider Emergency Medicine; PCP Nurse Practitioner Family
DX: S39.012A Strain of muscle, fascia and tendon of lower back, initial encounter (principal); V49.40XA Driver injured in collision with unspecified motor vehicles in traffic accident, initial encounter
CPT/HCPCS: 72072; 72100; 99283; A9270